=== PATIENT | female | born 1940 | race Caucasian/White ===

== ENCOUNTER 2017-03-11 14:02 | Inpatient (IN) | payer MEDICARE, BC ==
--- NOTE | 2017-03-11 15:10 | RAD ---
Indication: Chest pain. 2 views of the chest including dual energy PA views demonstrate no mediastinal shift. Heart is of normal size and configuration. Lung galindo demonstrate no pleural fluid, pneumonia or pneumothorax. IMPRESSION: No active cardiopulmonary disease is noted.
[2017-03-11 15:49] LABS: Hematocrit 41 % (35-47); Hemoglobin 13.2 g/dl (12.0-16.0); Mean Corpuscular HGB Conc 32 g/dl (31-36); Mean Corpuscular Hemoglobin 27 pg (27-31); Mean Corpuscular Volume 86 fL (80-97); Mean Platelet Volume 10 um3 (7.4-10.4); Red Cell Distribution Width 14 % (10.5-15); White Blood Count 16.6 10^3/ul (3.5-10.8)
[2017-03-11 16:05] LABS: Albumin 3.7 g/dL (3.2-5.2); BUN/Creatinine Ratio 22.6 (8-20); Calcium 9.4 mg/dL (8.6-10.3); EGFR African American 84.3 (>60); EGFR Non-African American 65.6 (>60); Globulin 3.2 g/dL (2-4); Potassium 4.1 mmol/L (3.5-5.0); Total Bilirubin 0.4 mg/dL (0.2-1.0); Total Protein 6.9 g/dL (6.4-8.9)
[2017-03-11] MEDS ORDERED: Nitroglycerin TAB 0.4 MG* 0.4 MG TAB SL ONE (16:38)
[2017-03-11] MEDS ORDERED: Dextrose 50% Syringe 50 ML* 25 GM/50 ML SYRINGE IV PUSH PRN (18:23)
--- NOTE | 2017-03-11 18:50 | ED ---
Lokesh Hargrove Adam, scribed for Odin Oliveira MD on 03/11/17 at 1631 . HPI Chest Pain - HPI Summary HPI Summary: Pt is a 77 year old female presenting with CP and palpitations. She describes the pain as a tightness that is 6/10 in severity. It set on yesterday and the pain has been constant since then. She woke up in the middle of the night with diaphoresis and found her blood sugar to be 62. She has DM and she had taken a typical dose of NovoLog at 23:00. She had eaten a normal dinner. The palpitations are described as rapid and irregular. She denies cough, lightheadedness/dizziness, N/V/D. She has 2 cardiac stents. She takes water pills. - History of Current Complaint Chief Complaint: EDChestWallPain Time Seen by Provider: 03/11/17 16:14 Pain Intensity: 5 - Allergy/Home Medications Allergies/Adverse Reactions: Allergies Allergy/AdvReac Type Severity Reaction Status Date / Time Barbiturates Allergy Hives Verified 08/05/15 10:32 Home Medications: Home Medications Cranberry (Vaccinium Macrocarp [Cranberry] 500 mg PO DAILY 03/11/17 [History Confirmed 03/11/17] Insulin Detemir [Levemir Flextouch] 110 unit SUBCUT QPM MDD 250 units 03/11/17 [ History Confirmed 03/11/17] Liraglutide (NF) [Victoza (NF)] 0.6 mg SUBCUT DAILY 03/11/17 [History Confirmed 03/11/17] PMH/Surg Hx/FS Hx/Imm Hx Endocrine/Hematology History: Reports: Hx Anticoagulant Therapy - PLAVIX, 81MG ASA, Hx Diabetes - IDDM, Hx Thyroid Disease Denies: Hx Anemia Cardiovascular History: Reports: Hx Coronary Artery Disease - STENT X2 2006,2012 , Hx Hypertension - WELL CONTROLLED Respiratory History: Denies: Hx Asthma GI History: Reports: Hx Gastroesophageal Reflux Disease - OCC Denies: Hx Jaundice History: Denies: Hx Renal Disease Musculoskeletal History: Reports: Hx Tendonitis - LEFT ACHILLES TENDONITIS R/T LEVAQUIN Sensory History: Reports: Hx Contacts or Glasses Denies: Hx Hearing Aid Opthamlomology History: Reports: Hx Contacts or Glasses Neurological History: Denies: Hx Seizures - Cancer History Cancer Type, Location and Year: Melamoma, Squamous cell carcinoma Hx Chemotherapy: No Hx Radiation Therapy: No - Surgical History Surgery Procedure, Year, and Place: BILAT HERNIA REPAIR 1994. MELANOMA EXC RIGHT ARM X3 S. R TOE SURGERY 2012. TONSILLECTOMY. RHINOPLASTY Hx Anesthesia Reactions: No Infectious Disease History: Reports: Hx Shingles Denies: Traveled Outside the [place] in Last 30 Days - Social History Alcohol Use: Rare Substance Use Type: Reports: None Smoking Status (MU): Never Smoked Tobacco Review of Systems Positive: Skin Diaphoresis. Negative: Fever, Chills Negative: Erythema Negative: Sore Throat Positive: Palpitations, Chest Pain Negative: Shortness Of Breath, Cough Negative: Abdominal Pain, Vomiting, Nausea Negative: dysuria, hematuria Negative: Myalgia, Edema Negative: Rash All Other Systems Reviewed And Are Negative: Yes Physical Exam - Summary Physical Exam Summary: Constitutional: Well-developed, Well-nourished, Alert. (-) Distressed Skin: Warm, Dry HENT: Normocephalic; Atraumatic Eyes: Conjunctiva normal Neck: Musculoskeletal ROM normal neck. (-) JVD, (-) Stridor, (-) Tracheal deviation Cardio: Rhythm regular, rate normal, Heart sounds normal; Intact distal pulses; The pedal pulses are 2+ and symmetric. Radial pulses are 2+ and symmetric. (-) Murmur Pulmonary/Chest wall: Effort normal. (-) Respiratory distress, (-) Wheezes, (-) Rales Abd: Soft, (-) Tenderness, (-) Distension, (-) Guarding, (-) Rebound Musculoskeletal: (-) Edema Lymph: (-) Cervical adenopathy Neuro: Alert, Oriented x3 Psych: Mood and affect Normal Triage Information Reviewed: Yes Vital Signs On Initial Exam: Initial Vitals Temp Pulse Resp BP Pulse Ox 97.8 F 100 20 199/74 97 03/11/17 14:02 03/11/17 14:02 03/11/17 14:02 03/11/17 14:02 03/11/17 14:02 Vital Signs Reviewed: Yes Diagnostics - Vital Signs Vital Signs Temp Pulse Resp BP Pulse Ox 03/11/17 15:28 98.7 F 85 16 159/55 97 03/11/17 15:02 97.1 F 82 17 132/57 97 03/11/17 14:02 97.8 F 100 20 199/74 97 - Laboratory Lab Results: Lab Results 03/11/17 03/11/17 03/11/17 Range/Units 15:45 15:45 15:45 WBC 16.6 H (3.5-10.8) 10^3/ul RBC 4.80 (4.0-5.4) 10^6/ul Hgb 13.2 (12.0-16.0) g/dl Hct 41 (35-47) % MCV 86 (80-97) fL MCH 27 (27-31) pg MCHC 32 (31-36) g/dl RDW 14 (10.5-15) % Plt Count 318 (150-450) 10^3/ul MPV 10 (7.4-10.4) um3 Neut % (Auto) 70.6 (38-83) % Lymph % (Auto) 20.1 L (25-47) % [place] % (Auto) 6.3 (1-9) % Eos % (Auto) 2.1 (0-6) % Baso % (Auto) 0.9 (0-2) % Absolute Neuts (auto) 11.7 H (1.5-7.7) 10^3/ul Absolute Lymphs (auto) 3.3 (1.0-4.8) 10^3/ul Absolute Monos (auto) 1.0 H (0-0.8) 10^3/ul Absolute Eos (auto) 0.4 (0-0.6) 10^3/ul Absolute Basos (auto) 0.1 (0-0.2) 10^3/ul Absolute Nucleated RBC 0.01 10^3/ul Nucleated RBC % 0.1 Sodium 138 (133-145) mmol/L Potassium 4.1 (3.5-5.0) mmol/L Chloride 102 (101-111) mmol/L Carbon Dioxide 27 (22-32) mmol/L Anion Gap 9 (2-11) mmol/L BUN 19 (6-24) mg/dL Creatinine 0.84 (0.51-0.95) mg/dL Est GFR ( Amer) 84.3 (>60) Est GFR (Non-Af Amer) 65.6 (>60) BUN/Creatinine Ratio 22.6 H (8-20) Glucose 237 H (70-100) mg/dL Lactic Acid 3.3 H* (0.5-2.0) mmol/L Calcium 9.4 (8.6-10.3) mg/dL Total Bilirubin 0.40 (0.2-1.0) mg/dL AST 20 (13-39) U/L ALT 25 (7-52) U/L Alkaline Phosphatase 93 (34-104) U/L Troponin I 0.00 (<0.04) ng/mL Total Protein 6.9 (6.4-8.9) g/dL Albumin 3.7 (3.2-5.2) g/dL Globulin 3.2 (2-4) g/dL Albumin/Globulin Ratio 1.2 (1-3) Result Diagrams: 03/11/17 15:45 03/11/17 15:45 Lab Statement: Any lab studies that have been ordered have been reviewed, and results considered in the medical decision making process. - Additional Comments Diagnostic Additional Comments: Troponin I - 0.00 Lactic Acid - 3.3 Chest Pain Course/Dx - Diagnoses Provider Diagnoses: Chest pain, unspecified Discharge - Discharge Plan Condition: Good Disposition: ADMITTED TO [facility] documentation as recorded by the Lokesh contreras Adam accurately reflects the service I personally performed and the decisions made by , Odin Oliveira MD.
[2017-03-11] MEDS ORDERED: NS 0.9% 1000 ML* 1,000 ML IV SCH (19:00)
[2017-03-11] MEDS ORDERED: Insulin GLARGINE(*) 1 UNITS UNIT SUBCUT ONE (21:00)
--- NOTE | 2017-03-11 21:40 | HP ---
HISTORY AND PHYSICAL: DATE OF ADMISSION: 03/11/17 AGE: 77. PRIMARY CARE PROVIDER: Dr. Darby. CRANBERRY BOG SUPERVISOR: Dr. Bermudez. ATTENDING PHYSICIAN: Dr. Mazin Piper *(dictated by Prema Arriaga NP). CHIEF COMPLAINT: Chest tightness. HISTORY OF PRESENT ILLNESS: Ms. Thomson is a 77-year-old female with past medical history significant for diabetes mellitus, hypertension, hyperlipidemia , coronary artery disease, status post stenting x2, hypothyroidism, obesity who presented to the emergency room today with complaints of chest tightness that started yesterday. The patient states that she awoke during the night yesterday with chest tightness that has been constant ever since. The patient also notes that last night she awoke with diaphoresis and checked her glucose and was 62. The patient also reports irregular heart rate with palpitations that has been intermittent for the last few weeks, most often at nighttime. She reports that the chest tightness and palpitations occur randomly and she has not found an association with activity or rest that causes it. She reports checking her glucose 3 times daily and reports that it is often high, low, or within normal limits. The patient also reports recently suffering from seasonal allergies with a sinus headache that is resolving. She denies nasal congestion, fever, chills, cough, nausea, vomiting, diarrhea, lightheadedness, dizziness, or urinary symptoms. The patient does report some mild shortness of breath that she attributes to her allergy symptoms. Due to concern for the patient's symptoms and previous cardiac history, the patient presented to the emergency room for further evaluation of her symptoms. While in the emergency room, the patient had an EKG showing a sinus rhythm with a rate of 85. This EKG is similar to previous EKGs from 01/05/12. The patient also had a chest x-ray showing no acute findings. She had labs that were significant for lactic acid of 3.33 and troponin of 0.00 x2 and a white blood cell count of 16.6. Due to the patient's presentation with chest tightness and her history, the Hospitalists were asked to evaluate the patient for admission. The patient was also given nitro during her time in the ER, which decreased her chest discomfort from a 6/10 to a 2/10. The patient then reports that the chest pain has now resolved. PAST MEDICAL HISTORY: 1. Diabetes mellitus, insulin dependent. 2. Hypertension. 3. Coronary artery disease. 4. GERD. 5. Melanoma of the left upper arm. 6. Squamous cell carcinoma of the right lower leg. 7. Hypothyroidism. 8. Hyperlipidemia. 9. Obesity. 10. Metabolic syndrome. 11. Shingles x2. PAST SURGICAL HISTORY: 1. Status post rhinoplasty. 2. Status post tonsillectomy. 3. ORIF of the right fifth metatarsal in 2012. 4. Status post bilateral cataract extractions. 5. Status post cardiac catheterization with cardiac stenting in 2006 and 2011. 6. Excision of squamous cell carcinoma of the right lower extremity. 7. Status post bilateral hernia repair in . 8. Status post excision of melanoma of the left upper extremity in the . HOME MEDICATIONS: Include: 1. NovoLog sliding scale subcutaneously daily with meals. 2. Cranberry 500 mg oral daily. 3. Clobetasol 0.05% apply topical twice daily to her perineal area. 4. Aspirin 81 mg daily at bedtime. 5. Vitamin B complex 1 tablet oral daily. 6. Levemir 100 units subcutaneous every morning. 7. Levemir 110 units subcutaneous every evening. 8. Plavix 75 mg oral daily. 9. Atorvastatin 80 mg oral every evening. 10. Glucophage 1000 mg oral twice daily. 11. Losartan 100 mg oral daily. 12. Levothyroxine 100 mcg oral daily. 13. Hydrochlorothiazide 12.5 mg oral daily. 14. Metoprolol 25 mg oral daily. 15. Victoza 0.6 mg subcutaneous daily. ALLERGIES: BARBITURATES and BYETTA. FAMILY HISTORY: The patient reports a maternal grandmother who had an NC in her 50s. The patient's mother, maternal grandmother, and maternal great grandmother, all had diabetes mellitus. The patient's paternal aunt had a history of breast cancer and passed from it. SOCIAL HISTORY: The patient denies tobacco or recreational drug use. She rarely drinks alcohol. 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 She is and lives with her , Shoaib Lyle, who will be her surrogate decision maker in the event that she is unable to make decision for herself. REVIEW OF SYSTEMS: I performed a 14-point review of systems. All the pertinent positives and negatives are mentioned in the history of present illness. The remaining review of systems are negative. PHYSICAL EXAMINATION GENERAL APPEARANCE: The patient is alert, pleasant, appears to be in no acute distress. VITAL SIGNS: Temperature 98.9, heart rate 88, respiratory rate 20, O2 sat 100% on room air, blood pressure 142/66. HEENT: Normocephalic, atraumatic. Pupils are equal and reactive to light. Extraocular movements are intact. NECK: Supple. RESPIRATORY: There is no accessory muscle use and the lungs are clear to auscultation bilaterally. CARDIOVASCULAR: Regular rate and rhythm. There are no murmurs, rubs, or gallops heard. ABDOMEN: Soft, nontender, nondistended. There are bowel sounds present x4. EXTREMITIES: There is no lower extremity edema. DP and PT pulses are 2+ and symmetric. MUSCULOSKELETAL: There is no clubbing or cyanosis noted. The patient exhibits good strength in all extremities. NEUROLOGICAL: The patient is alert and oriented x4. Cranial nerves are II through XII are grossly intact. PSYCHOLOGICAL: The patient is calm and cooperative. SKIN: There are no rashes or abnormalities seen. DIAGNOSTIC STUDIES/LABORATORY DATA: Sodium 138, potassium 4.1, chloride 102, CO2 27, BUN 19, creatinine 0.84, glucose 237. White blood cell count 16.6, hemoglobin 13.2, hematocrit 41, and platelet count 318. Lactic acid 3.3. Troponin 0.00 x2. EKG shows a sinus rhythm with a rate of 85. This EKG is similar to previous EKG from 01/05/12. Chest x-ray from today: Radiologist's impression: No active cardiopulmonary disease. IMPRESSION: Ms. Thomson is a 77-year-old female with past medical history significant for diabetes mellitus, hypertension, coronary artery disease, gastroesophageal reflux disease, hypothyroidism, hyperlipidemia, and obesity who presents to the emergency room with atypical chest pain. She will be admitted as an observation for chest pain, rule out acute coronary syndrome. ASSESSMENT: 1. Chest pain: The patient will be admitted to rule out acute coronary syndrome. She will be monitored on telemetry. We will trend her troponins. At this point, her troponins have been 0.00 x2. Her chest pain has resolved. The patient's CHLOE score is a 3. We will check fasting lipids in the morning. The patient's last TSH was 1.70 in January 2017. 2. Elevated lactic acid and leukocytosis: Unclear etiology at this time. The patient's chest x-ray shows no active cardiopulmonary disease. The patient denies urinary symptoms, but we will check a urinalysis. We will hold on starting antibiotics at this time. We will give the patient IV fluids overnight. 3. Diabetes mellitus: We will place the patient on lispro sliding scale. We will hold her metformin and Victoza. The patient will be placed on Lantus. We will do 90 units subcutaneous every morning and 100 units subcutaneous every evening as Lantus is slightly more potent than the Levemir that she uses at home. 4. Hypertension: The patient has been slightly hypertensive in the emergency room. We will monitor her blood pressures and keep her on her current home medications of metoprolol and losartan and she may need her antihypertensives further adjusted. Continue hydrochlorothiazide. 5. History of coronary artery disease: The patient will be continued on her metoprolol, Lipitor, Plavix, and aspirin. 6. Hypothyroidism: The patient's last TSH in January was 1.70. She will be continued on her home dose of levothyroxine of 100 mcg. 7. Fluids, electrolytes, and nutrition: The patient will be on a consistent carbohydrate diet. 8. Code status: Do not resuscitate. A MOLST has been completed and placed in the patient's chart. 9. DVT prophylaxis: The patient is at a high risk and will be placed on subcu heparin. 10. Disposition: Observation. TIME SPENT: The time spent for this admission was 60 minutes; 35 minutes were spent with the patient and discussing medications, past medical history , and the events leading up to her arrival today and performing her physical examination. The case has been reviewed with the attending, Dr. Piper, who agrees with the plan of care. Reviewed by VIANEY GONZALEZ 03/16/17 1802 CC: Dr. Yoav Darby* [id number]/[facility] #: [id number] [place]
[2017-03-11] MEDS: Clobetasol 0.05% OINT* 30 GM TUBE TOPICAL SCH (22:17)
[2017-03-11] MEDS: Insulin GLARGINE(*) 1 UNITS UNIT SUBCUT SCH (22:19)
[2017-03-11] MEDS: Aspirin EC Low Dose* 81 MG TAB.EC PO SCH (22:19)
[2017-03-11] MEDS: Heparin VIAL(*) 5000 UNITS/ML VIAL (FIVE THOUSAND) SUBCUT SCH (23:41)
[2017-03-11] MEDS: Atorvastatin* 80 MG TAB PO SCH (23:50)
[2017-03-11] MEDS: Losartan TAB* 25 MG PO SCH (23:51)
[2017-03-12 04:16] LABS: Urine Bacteria 1+ (Absent); Urine Bilirubin Negative (Negative); Urine Glucose Negative (Negative); Urine Nitrite Positive (Negative)
[2017-03-12] MEDS: Heparin VIAL(*) 5000 UNITS/ML VIAL (FIVE THOUSAND) SUBCUT SCH (06:13)
[2017-03-12] MEDS: Levothyroxine TAB* 100 MCG TAB PO SCH (06:14)
[2017-03-12 07:12] LABS: Hematocrit 39 % (35-47); Hemoglobin 12.3 g/dl (12.0-16.0); Mean Corpuscular HGB Conc 32 g/dl (31-36); Mean Corpuscular Hemoglobin 27 pg (27-31); Mean Corpuscular Volume 86 fL (80-97); Mean Platelet Volume 9 um3 (7.4-10.4); Red Cell Distribution Width 15 % (10.5-15); White Blood Count 12.7 10^3/ul (3.5-10.8)
[2017-03-12 07:31] LABS: HDL Cholesterol 31.7 mg/dL
[2017-03-12] MEDS: Insulin LISPRO* 1 UNITS UNIT SUBCUT SCH ×3 (08:35→17:06)
[2017-03-12] MEDS: Metoprolol Succinate XL TAB* 25 MG PO SCH (08:35)
[2017-03-12] MEDS: Clopidogrel TAB* 75 MG PO SCH (08:35)
[2017-03-12] MEDS: Hydrochlorothiazide TAB* 25 MG PO SCH (08:35)
[2017-03-12] MEDS: Insulin GLARGINE(*) 1 UNITS UNIT SUBCUT SCH ×2 (08:36→21:25)
[2017-03-12] MEDS: Clobetasol 0.05% OINT* 30 GM TUBE TOPICAL SCH ×2 (08:41→21:25)
--- NOTE | 2017-03-12 10:02 | PN ---
Subjective - Subjective Reason for Note: Progress Note History: Mali Thomson has had rapid heartbeats that are self limiting for several weeks. Yesterday she had 8 hours of chest tightness associated with sensation of irregular heartbeat. She did not have any sweating, nausea, vomiting, light headedness, shortness of breath. She denies any symptoms of intercurrent illness recently - cough, cold, fevers, UTI, gastroenteritis. Otherwise, there has been no change in her chronic medical conditions. She has been swimming and has felt well. Active Problems: Active Problems Paroxysmal atrial fibrillation with rapid ventricular response (Acute) I48.0 Urinary tract infection (Acute 02/27/15) Coronary artery disease (Chronic) I25.10 DM (diabetes mellitus), type 2, uncontrolled w/neurologic complication (Chronic ) E11.49, E11.65 Essential (primary) hypertension (Chronic) I10 Hypercholesteremia (Chronic) E78.0 Obesity, Class II, BMI 35.0-39.9, with comorbidity (see actual BMI) (Chronic) E66.01 Peripheral neuropathy (Chronic) G62.9 Primary hypothyroidism (Chronic) E03.9 Current Medications: Current Medications Aspirin (Aspirin Ec Low Dose*) 81 mg PO BEDTIME [facility] Last Admin: 03/11/17 22:19 Dose: 81 mg Atorvastatin Calcium (Lipitor*) 80 mg PO BEDTIME [facility] Last Admin: 03/11/17 23:50 Dose: 80 mg Clobetasol Propionate (Clobetasol 0.05% Oint*) 1 applic TOPICAL BID [facility] Last Admin: 03/12/17 08:41 Dose: 1 applic Clopidogrel Bisulfate (Plavix Tab*) 75 mg PO DAILY [facility] Last Admin: 03/12/17 08:35 Dose: 75 mg Dextrose (D50w Syringe 50 Ml*) 12.5 gm IV PUSH .FOR FS < 60 - SS PRN PRN Reason: FS < 60 Heparin Sodium (Porcine) (Heparin Vial(*)) 5,000 units SUBCUT Q8HR [facility] Last Admin: 03/12/17 06:13 Dose: 5,000 units Hydrochlorothiazide (Hydrodiuril Tab*) 12.5 mg PO DAILY [facility] Last Admin: 03/12/17 08:35 Dose: 12.5 mg Sodium Chloride (Ns 0.9% 1000 Ml*) 1,000 mls @ 100 mls/hr IV PER RATE [facility] Last Admin: 03/11/17 22:33 Dose: 100 mls/hr Insulin Glargine (Lantus(*)) 90 units SUBCUT QAM [facility] Last Admin: 03/12/17 08:36 Dose: 90 unit Insulin Glargine (Lantus(*)) 100 units SUBCUT BEDTIME [facility] Last Admin: 03/11/17 22:19 Dose: 100 units Insulin Human Lispro (Humalog*) 0 - 15 units SUBCUT AC [facility] PRN Reason: Protocol Last Admin: 03/12/17 08:35 Dose: 3 units Levothyroxine Sodium (Synthroid Tab*) 100 mcg PO 0600 [facility] Last Admin: 03/12/17 06:14 Dose: 100 mcg Losartan Potassium (Cozaar Tab*) 100 mg PO BEDTIME [facility] Last Admin: 03/11/17 23:51 Dose: 100 mg Metoprolol Succinate (Toprol Xl Tab*) 25 mg PO DAILY [facility] Last Admin: 03/12/17 08:35 Dose: 25 mg Home Medications: Home Medications Medication Instructions Recorded Confirmed Type Aspirin EC Low Dose* [Ecotrin EC 81 mg PO DAILY 02/27/15 03/11/17 History Low Dose 81 MG*] Atorvastatin* [Lipitor*] 80 mg PO QPM 02/27/15 03/11/17 History Clopidogrel TAB* [Plavix TAB*] 75 mg PO DAILY 02/27/15 03/11/17 History Hydrochlorothiazide TAB* 12.5 mg PO DAILY 02/27/15 03/11/17 History [Hydrodiuril TAB*] Insulin Aspart Protamine & Asp 0 - 50 inj SUBCUT TID MDD 50 units 02/27/1503/11 History [Novolog Mix 70/30 (70-30) 100 Unit/ml] Insulin Detemir [Levemir Flextouch] 100 unit SUBCUT QAM MDD 250 units 02/27/15 03/11/17 History Levothyroxine TAB* [Synthroid TAB*] 100 mcg PO 0800 02/27/15 03/11/17 History Losartan TAB* [Cozaar TAB*] 100 mg PO DAILY 02/27/15 03/11/17 History Metoprolol Succinate XL TAB* 25 mg PO DAILY 02/27/15 03/11/17 History [Toprol XL TAB*] Vitamin B Complex CAP* [B Complex 1 cap PO DAILY 02/27/15 03/11/17 History CAP*] metFORMIN* [Glucophage*] 1,000 mg PO 0800,1700 02/27/15 03/11/17 History Clobetasol 0.05% OINT* 1 applic TOPICAL BID 07/29/15 03/11/17 History Cranberry (Vaccinium Macrocarp 500 mg PO DAILY 03/11/17 03/11/17 History [Cranberry] Insulin Detemir [Levemir Flextouch] 110 unit SUBCUT QPM MDD 250 units 03/11/17 03/11/17 History Liraglutide (NF) [Victoza (NF)] 0.6 mg SUBCUT DAILY 03/11/17 03/11/17 History Allergies: Allergies Allergy/AdvReac Type Severity Reaction Status Date / Time Barbiturates Allergy Hives Verified 08/05/15 10:32 Exenatide [From Byetta] Allergy Unknown Verified 03/11/17 19:03 Reaction Details Phenol [From Byetta] Allergy Unknown Verified 03/11/17 19:03 Reaction Details Objective - Vital Signs Vital Signs: Vital Signs 03/11/17 03/11/17 03/11/17 18:00 18:30 19:00 Temperature 97.4 F Pulse Rate 84 80 82 Respiratory 16 16 22 Rate Blood Pressure 168/74 154/59 (mmHg) O2 Sat by Pulse 94 94 92 Oximetry 03/11/17 03/11/17 03/12/17 20:00 23:56 03:40 Temperature 97.5 F 97.8 F Pulse Rate 80 76 Respiratory 18 16 20 Rate Blood Pressure 139/75 133/62 (mmHg) O2 Sat by Pulse 95 92 Oximetry 03/12/17 07:33 Temperature Pulse Rate Respiratory 18 Rate Blood Pressure (mmHg) O2 Sat by Pulse Oximetry - Intake and Output Intake and Output: Intake & Output 03/09/17 03/10/17 03/11/17 03/12/17 11:59 11:59 11:59 11:59 Intake Total 200 Balance 200 Weight 270 lb 3.2 oz Intake: Oral 200 Other: Estimated Void Small # Bowel Movements 0 # Voids 2 ADLs: Meal Record Start: 03/11/17 18: 30 Freq: DAILY@0900,1400,1800 Status: Active Document 03/12/17 09:06 [id number] (Rec: 03/12/17 09:06 [id number]) Intake and Output Start: 03/11/17 18: 30 Freq: DAILY@0600,1400,2200 Status: Active Document 03/12/17 05:21 [id number] (Rec: 03/12/17 05:24 [id number]) - Physical Exam General Physical Exam Comment: Warm, well perfused and in no acute distress. General: No Cyanosis, No Anemia, No Jaundice, No Clubbing Eye Exam: right: EOMI Skin: Normal: Rash Lungs and Chest: Yes: Chest Expansion Full, Chest Expansion Symetrica, Percussion Note Resonant, Vessicular Breath Sounds. No: Crackles, Wheezes Heart Rate and Rhythm: Regular Additional Cardiovascular: Yes: Normal Heart Sounds. No: Heart Murmur, Carotid Bruits, Pedal Edema Abdominal Exam: Yes: Soft, Bowel Sounds Present. No: Distention, Abdominal Mass , Abdominal Tenderness - Extremities Cranial Nerves II-XII Intact: Yes Limbs: Normal Power, Normal Tone - Neuro Orientation: A/O x3 Speech: Normal Results - Results Lab Results: Laboratory Results - last 24 hr 03/11/17 03/11/17 03/12/17 20:27 20:27 01:00 WBC RBC Hgb Hct MCV MCH MCHC RDW Plt Count MPV Neut % (Auto) Lymph % (Auto) [place] % (Auto) Eos % (Auto) Baso % (Auto) Absolute Neuts (auto) Absolute Lymphs (auto) Absolute Monos (auto) Absolute Eos (auto) Absolute Basos (auto) Absolute Nucleated RBC Nucleated RBC % POC Glucose (mg/dL) Lactic Acid 2.5 H* Troponin I 0.00 Triglycerides Cholesterol LDL Cholesterol HDL Cholesterol Urine Color Yellow Urine Appearance Cloudy Urine pH 5.0 Ur Specific Clarence 1.020 Urine Protein Negative Urine Ketones Negative Urine Blood Negative Urine Nitrate Positive H Urine Bilirubin Negative Urine Urobilinogen Negative Ur Leukocyte Esterase Trace H Urine WBC (Auto) Trace(0-5/hpf) Urine RBC (Auto) 1+(3-5/hpf) H Urine Bacteria 1+ H Urine Glucose Negative 03/12/17 03/12/17 03/12/17 01:16 03:53 06:55 WBC 12.7 H RBC 4.50 Hgb 12.3 Hct 39 MCV 86 MCH 27 MCHC 32 RDW 15 Plt Count 269 MPV 9 Neut % (Auto) 65.6 Lymph % (Auto) 24.9 L [place] % (Auto) 5.5 Eos % (Auto) 3.1 Baso % (Auto) 0.9 Absolute Neuts (auto) 8.4 H Absolute Lymphs (auto) 3.2 Absolute Monos (auto) 0.7 Absolute Eos (auto) 0.4 Absolute Basos (auto) 0.1 Absolute Nucleated RBC 0 Nucleated RBC % 0 POC Glucose (mg/dL) 178 H 121 H Lactic Acid Troponin I Triglycerides Cholesterol LDL Cholesterol HDL Cholesterol Urine Color Urine Appearance Urine pH Ur Specific Clarence Urine Protein Urine Ketones Urine Blood Urine Nitrate Urine Bilirubin Urine Urobilinogen Ur Leukocyte Esterase Urine WBC (Auto) Urine RBC (Auto) Urine Bacteria Urine Glucose 03/12/17 03/12/17 06:55 07:21 WBC RBC Hgb Hct MCV MCH MCHC RDW Plt Count MPV Neut % (Auto) Lymph % (Auto) [place] % (Auto) Eos % (Auto) Baso % (Auto) Absolute Neuts (auto) Absolute Lymphs (auto) Absolute Monos (auto) Absolute Eos (auto) Absolute Basos (auto) Absolute Nucleated RBC Nucleated RBC % POC Glucose (mg/dL) 157 H Lactic Acid Troponin I Triglycerides 158 Cholesterol 146 LDL Cholesterol 83 HDL Cholesterol 31.7 Urine Color Urine Appearance Urine pH Ur Specific Clarence Urine Protein Urine Ketones Urine Blood Urine Nitrate Urine Bilirubin Urine Urobilinogen Ur Leukocyte Esterase Urine WBC (Auto) Urine RBC (Auto) Urine Bacteria Urine Glucose Radiology Results: Patient Name: MALI THOMSON Medical Record#: [id number] Ordering Physician: Rogerio Rose MD Acct.#: [id number] : 1940 Age: 77 Sex: F Location: EMERGENCY DEPARTMENT Exam Date: 03/11/17 1432 ADM Status: REG ER Order Information: CHEST PA & LAT 2 VWS Accession Number: [id number] CPT: 05613 Indication: Chest pain. 2 views of the chest including dual energy PA views demonstrate no mediastinal shift. Heart is of normal size and configuration. Lung galindo demonstrate no pleural fluid, pneumonia or pneumothorax. IMPRESSION: No active cardiopulmonary disease is noted. <Electronically signed by Nydia Rowe MD in OV> 03/11/171506 Dictated By: Nydia Rowe MD Dictated Date/Time: 03/11/17 1507 Transcribed Date/Time: 03/11/17 1504 Copy to: CC:Yoav Darby MD; [facility]; Rogerio Rose MD Imaging - [facility] Imaging - [facility] Imaging [facility] [address] [place] [id number] [address] [address] ph ([phone]) ph ([phone]) ph ([phone]) EKG Report: 12 lead EKG RAte 85 [place] 188 QTc 445 QRS axis -22 left axis deviation ? left anterior hemiblock. No ST-T changes Telemetry: Multiple episodes of atrial fibrillation - some with rapid ventricular response Assessment - Problem List Assessment: Patient Problems Paroxysmal atrial fibrillation with rapid ventricular response (Acute) Urinary tract infection (Acute 02/27/15) Coronary artery disease (Chronic) DM (diabetes mellitus), type 2, uncontrolled w/neurologic complication (Chronic) Essential (primary) hypertension (Chronic) Hypercholesteremia (Chronic) Obesity, Class II, BMI 35.0-39.9, with comorbidity (see actual BMI) (Chronic) Peripheral neuropathy (Chronic) Primary hypothyroidism (Chronic) Plan: Paroxysmal atrial fibrillation with rapid ventricular response (Acute) I think she had a prolonged episode of paroxysmal atrial fibrillation with a rapid ventricular response accounting for her lactic acid level. Her troponin I series is negative, making acute ischemia an unlikely cause. I will check her thyroid function. I have discussed her case with Dr. Bermudez - her primary warehouse production worker - fortuitously he is continuity writer this weekend and will consult. He agrees we should anticoagulate her. I discussed this with the patient and educated her about novel anticoagulants. She agrees to start xarelto. I explained to the patient the nature of paroxysmal atrial fibrillation and the various investigatory and therapeutic approaches. I included evaluation of ischemia given her previous history of CAD and multiple ris factors. I also discussed the use of antiarrhythmic agents - several of which require hospitalization for initiation. I discussed the eventual use of either rate control or radiofrequency ablation. Urinary tract infection (Acute 02/27/15) She has a positive urinalysis - she has no physical signs. I will add a CRP and await colony count/C and S prior to treatment. She is not septic and I think this is a coexisting problem - not the cause for her admission. Coronary artery disease (Chronic) per Dr. Bermudez DM (diabetes mellitus), type 2, uncontrolled w/neurologic complication (Chronic ) well controlled Essential (primary) hypertension (Chronic) well controlled Hypercholesteremia (Chronic) continue current Rx Obesity, Class II, BMI 35.0-39.9, with comorbidity (see actual BMI) (Chronic) secondary diagnosis Peripheral neuropathy (Chronic) secondary diagnosis Primary hypothyroidism (Chronic) I will check her TSH. I discussed the above with the patient and she agrees with the management plan.
[2017-03-12 11:30] LABS: TSH (Thyroid Stimulating Horm) 1.75 mcIU/mL (0.34-5.60)
[2017-03-12 11:35] LABS: Free T4 1.02 ng/dL (0.61-1.12)
[2017-03-12 11:39] LABS: Total T3 0.63 ng/mL (0.87-1.78)
[2017-03-12] MEDS: Rivaroxaban TAB(*) 20 MG TAB PO SCH (12:57)
[2017-03-12 13:28] LABS: C Reactive Protein 11.89 mg/L (< 5.00)
--- NOTE | 2017-03-12 16:56 | CONS ---
CC: Dr. Yoav Darby; Dr. Bermudez CARDIOLOGY CONSULTATION REPORT: DATE OF CONSULT: 03/12/17 HISTORY OF PRESENT ILLNESS: I was asked by Dr. Yoav Darby to see this 77-year- old female patient, who is known to me from before with extensive cardiac history and comorbidities, who presented to the hospital with palpitations, tachycardia, and apparently, she was found to have paroxysmal atrial fibrillation. She has some chest pressure with it. In the emergency room, she had sublingual nitroglycerin and that was relieved. She had no recurrent chest pain. She feels better since being in the hospital. Monitor showing periods of atrial fibrillation, paroxysmal. She gives no orthopnea, no PNDs, no dizziness, no syncope, no nausea, no vomiting, no hematochezia, no skin rash, no abdominal pain, no swelling of the lower extremities. She has been taking all her medications accordingly. She has significant comorbidities including diabetes mellitus, morbid obesity, hyperlipidemia. She does have known history of coronary artery disease with multiple cardiac catheterizations in the past, including last one in December 2011 with acute coronary syndrome, she had angioplasty, and stenting of the mid RCA and originally she had in 2006, stenting of the RCA. She also was found to have diffuse disease of the LAD for medical treatment. She does have history of systemic arterial hypertension, hypothyroidism, history of LVH, and history of UTI. She does have UTI at the present time acutely. She was ruled out for myocardial infarction by negative troponins. Her review of all other systems essentially is negative. PAST MEDICAL HISTORY: Her other medical history includes paroxysmal atrial fibrillation, urinary tract infection, coronary artery disease, diabetes mellitus, essential hypertension, hyperlipidemia, obesity, peripheral neuropathy , and primary hypothyroidism. PAST SURGICAL HISTORY: Cardiac catheterization in 2006 and 2011. MEDICATIONS: Include: 1. Aspirin 81 mg daily. 2. Lipitor 80 mg once daily. 3. Clopidogrel 75 mg daily. 4. Heparin was discontinued. 5. Hydrochlorothiazide, she is on 12.5 mg daily. 6. Insulin adjusted to her sugar. 7. Levothyroxine 100 mcg daily. 8. Losartan 100 mg daily. 9. Metoprolol 25 mg daily. ALLERGIES: She is allergic to BARBITURATES, LEVAQUIN, and BYETTA. FAMILY HISTORY: No family history of premature coronary artery disease. SOCIAL HISTORY: She gives no history of smoking. No significant drinking. No history of illicit drug abuse. She lives with her . PHYSICAL EXAM: She is awake, alert, and oriented. She is not in acute distress. She is obese. Vitals: Blood pressure is 133/62; pulse 76, she is in sinus rhythm; she is afebrile; temperature 97.8; respiratory rate 20. Head and Neck Exam: Normocephalic, atraumatic head. Ear, nose, and throat essentially benign. Neck is supple. JVP is not elevated. No carotid bruits. No masses in the neck are appreciated. Chest: Clear to auscultation. No rales, no wheeze, no added sounds appreciated. Heart: Normal, regular, S1, S2. No added sounds, no gallops, no rubs. Abdomen: Benign, positive bowel sounds, obese. Extremities: No edema, no cyanosis, no clubbing. Skin exam is normal. Psych: Normal affect and mood. 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 DIAGNOSTIC STUDIES/LAB DATA: Her labs showed the following: White blood cells 12.7, it was 16.6; hemoglobin 12.3; hematocrit 39; platelets of 269. Her chemistry showed the following: Sodium 138, potassium 4.1, chloride 102, BUN 19 , creatinine 0.84, glucose 237. Lactic acid was initially 3.3, felt to be related to her atrial fibrillation. LFTs are normal. Troponin 0 x3. TSH 1.75 , total T3 was 0.63 which is low. Triglycerides 158, cholesterol 146, LDL 83, HDL 32. Her EKG showed her to be in normal sinus rhythm, heart rate 76 beats per minute , borderline low voltage, nonspecific T abnormality. Her chest x-ray was reported to have no active cardiopulmonary disease. IMPRESSION: The patient is a 77-year-old female patient with: 1. Presentation with paroxysmal atrial fibrillation. She is in sinus rhythm. 2. Known history of coronary artery disease with stents in the past to the right coronary artery, originally in 2006, then in 2011. 3. Morbid obesity. 4. Systemic arterial hypertension. 5. Urinary tract infection. 6. Diabetes mellitus, insulin dependent. 7. Hyperlipidemia. 8. Normal left ventricular systolic function by an echo done in 2013. 9. Status post angioplasty and stenting to the right coronary artery, last one was in 2011. 10. [id number] mitral insufficiency. 11. Trace tricuspid insufficiency. PLAN: The patient is currently on telemetry. She is in sinus rhythm. Monitors reviewed, showed she goes into paroxysmal atrial fibrillation briefly. She is chest pain free. I reviewed this patient via phone with Dr. Yoav Darby today. I agree with initiating anticoagulation by the CHADS-VASc scoring system. She is high risk based on her age, female sex, diabetes mellitus, vascular disease, systemic arterial hypertension. Dr. Yoav Darby already initiated Xarelto. Regarding evaluation and risk stratification, I think a nuclear Myoview stress test is appropriate. Last time, she had the catheterization was in 2011. It has been 5 years. Definitely, she has no acute ischemic events; hopefully, that is the case based on her troponin 0 in the setting of rapid atrial fibrillation. She is to avoid significant amount of alcohol. She is to avoid caffeinated drinks. She is to avoid stimulants. She is to have low-salt, low-fat diet. She is to have physical activity as tolerated. Regarding antiarrhythmic medications, that is a consideration, I will await for the next 24 to 48 hours to see her response. If she keeps going into paroxysmal atrial fibrillation symptomatic, consideration might be given to Multaq or sotalol or Tikosyn to be initiated in the hospital, especially the Tikosyn and sotalol. I explained this at length to the patient and her , who was available at bedside. I answered all of their concerns and questions up to their satisfaction. TIME SPENT: More than half of at least 60 to 65 plus minutes was in education and counseling mode, [id number] answering all their concerns and questions up to their satisfaction. [id number]/[facility] #: [id number] [place]
[2017-03-12] MEDS: Aspirin EC Low Dose* 81 MG TAB.EC PO SCH (21:24)
[2017-03-12] MEDS: Atorvastatin* 80 MG TAB PO SCH (21:24)
[2017-03-12] MEDS: Losartan TAB* 25 MG PO SCH (21:26)
[2017-03-13] MEDS: Levothyroxine TAB* 100 MCG TAB PO SCH (05:38)
[2017-03-13 07:58] LABS: Hematocrit 40 % (35-47); Hemoglobin 12.9 g/dl (12.0-16.0); Mean Corpuscular HGB Conc 32 g/dl (31-36); Mean Corpuscular Hemoglobin 28 pg (27-31); Mean Corpuscular Volume 85 fL (80-97); Mean Platelet Volume 10 um3 (7.4-10.4); Red Blood Count 4.67 10^6/ul (4.0-5.4); Red Cell Distribution Width 15 % (10.5-15); White Blood Count 13.2 10^3/ul (3.5-10.8)
[2017-03-13 08:12] LABS: BUN/Creatinine Ratio 22.1 (8-20); Calcium 9.3 mg/dL (8.6-10.3); EGFR African American 107.6 (>60); EGFR Non-African American 83.7 (>60); Potassium 3.8 mmol/L (3.5-5.0)
[2017-03-13] MEDS: Insulin GLARGINE(*) 1 UNITS UNIT SUBCUT SCH ×2 (08:56→21:23)
[2017-03-13] MEDS: Hydrochlorothiazide TAB* 25 MG PO SCH (08:57)
[2017-03-13] MEDS: Rivaroxaban TAB(*) 20 MG TAB PO SCH (08:57)
[2017-03-13] MEDS: Insulin LISPRO* 1 UNITS UNIT SUBCUT SCH ×3 (08:57→17:06)
[2017-03-13] MEDS: Clobetasol 0.05% OINT* 30 GM TUBE TOPICAL SCH ×2 (08:58→22:46)
[2017-03-13] MEDS: Clopidogrel TAB* 75 MG PO SCH (08:58)
[2017-03-13] MEDS: Metoprolol Succinate XL TAB* 25 MG PO SCH (08:58)
--- NOTE | 2017-03-13 12:41 | PN ---
Subjective - Subjective Reason for Note: Progress Note History: She started xarelto yesterday and has had some blood in her stool and minor epistaxis. She takes both clopidogrel and aspirin. She was fine overnight and after walking around the [place] this morning she developed slight chest tightness, and this was not associated with palpitations. She has no nausea, sweating, light-headedness. Her FS is high and her appetite+++ since stopping the liraglutide (victoza). Active Problems: Active Problems Anticoagulation adequate with anticoagulant therapy (Acute) Z79.01 Paroxysmal atrial fibrillation with rapid ventricular response (Acute) I48.0 Urinary tract infection (Acute 02/27/15) Coronary artery disease (Chronic) I25.10 DM (diabetes mellitus), type 2, uncontrolled w/neurologic complication (Chronic ) E11.49, E11.65 Essential (primary) hypertension (Chronic) I10 Hypercholesteremia (Chronic) E78.0 Obesity, Class II, BMI 35.0-39.9, with comorbidity (see actual BMI) (Chronic) E66.01 Peripheral neuropathy (Chronic) G62.9 Primary hypothyroidism (Chronic) E03.9 Current Medications: Current Medications Aspirin (Aspirin Ec Low Dose*) 81 mg PO BEDTIME [facility] Last Admin: 03/12/17 21:24 Dose: 81 mg Atorvastatin Calcium (Lipitor*) 80 mg PO BEDTIME [facility] Last Admin: 03/12/17 21:24 Dose: 80 mg Clobetasol Propionate (Clobetasol 0.05% Oint*) 1 applic TOPICAL BID [facility] Last Admin: 03/13/17 08:58 Dose: 1 applic Clopidogrel Bisulfate (Plavix Tab*) 75 mg PO DAILY [facility] Last Admin: 03/13/17 08:58 Dose: 75 mg Dextrose (D50w Syringe 50 Ml*) 12.5 gm IV PUSH .FOR FS < 60 - SS PRN PRN Reason: FS < 60 Hydrochlorothiazide (Hydrodiuril Tab*) 12.5 mg PO DAILY [facility] Last Admin: 03/13/17 08:57 Dose: 12.5 mg Insulin Glargine (Lantus(*)) 90 units SUBCUT QAM [facility] Last Admin: 03/13/17 08:56 Dose: 90 unit Insulin Glargine (Lantus(*)) 100 units SUBCUT BEDTIME [facility] Last Admin: 03/12/17 21:25 Dose: 100 units Insulin Human Lispro (Humalog*) 0 - 15 units SUBCUT AC [facility] PRN Reason: Protocol Last Admin: 03/13/17 12:14 Dose: 6 units Levothyroxine Sodium (Synthroid Tab*) 100 mcg PO 0600 [facility] Last Admin: 03/13/17 05:38 Dose: 100 mcg Liraglutide (Victoza (Nf)) 0.6 mg SUBCUT DAILY [facility] Losartan Potassium (Cozaar Tab*) 100 mg PO BEDTIME [facility] Last Admin: 03/12/17 21:26 Dose: 100 mg Metoprolol Succinate (Toprol Xl Tab*) 25 mg PO DAILY [facility] Last Admin: 03/13/17 08:58 Dose: 25 mg Rivaroxaban (Xarelto (*)) 20 mg PO DAILY [facility] Last Admin: 03/13/17 08:57 Dose: 20 mg Home Medications: Home Medications Medication Instructions Recorded Confirmed Type Aspirin EC Low Dose* [Ecotrin EC 81 mg PO DAILY 02/27/15 03/11/17 History Low Dose 81 MG*] Atorvastatin* [Lipitor*] 80 mg PO QPM 02/27/15 03/11/17 History Clopidogrel TAB* [Plavix TAB*] 75 mg PO DAILY 02/27/15 03/11/17 History Hydrochlorothiazide TAB* 12.5 mg PO DAILY 02/27/15 03/11/17 History [Hydrodiuril TAB*] Insulin Aspart Protamine & Asp 0 - 50 inj SUBCUT TID MDD 50 units 02/27/1503/11 History [Novolog Mix 70/30 (70-30) 100 Unit/ml] Insulin Detemir [Levemir Flextouch] 100 unit SUBCUT QAM MDD 250 units 02/27/15 03/11/17 History Levothyroxine TAB* [Synthroid TAB*] 100 mcg PO 0800 02/27/15 03/11/17 History Losartan TAB* [Cozaar TAB*] 100 mg PO DAILY 02/27/15 03/11/17 History Metoprolol Succinate XL TAB* 25 mg PO DAILY 02/27/15 03/11/17 History [Toprol XL TAB*] Vitamin B Complex CAP* [B Complex 1 cap PO DAILY 02/27/15 03/11/17 History CAP*] metFORMIN* [Glucophage*] 1,000 mg PO 0800,1700 04/16/15 04/28/17 History Clobetasol 0.05% OINT* 1 applic TOPICAL BID 07/29/15 03/11/17 History Cranberry (Vaccinium Macrocarp 500 mg PO DAILY 03/11/17 03/11/17 History [Cranberry] Insulin Detemir [Levemir Flextouch] 110 unit SUBCUT QPM MDD 250 units 03/11/17 03/11/17 History Liraglutide (NF) [Victoza (NF)] 0.6 mg SUBCUT DAILY 03/11/17 03/11/17 History Allergies: Allergies Allergy/AdvReac Type Severity Reaction Status Date / Time Barbiturates Allergy Hives Verified 08/05/15 10:32 Exenatide [From Byetta] Allergy Unknown Verified 03/11/17 19:03 Reaction Details Phenol [From Byetta] Allergy Unknown Verified 03/11/17 19:03 Reaction Details Objective - Vital Signs Vital Signs: Vital Signs 03/12/17 03/12/17 03/12/17 15:29 19:56 20:59 Temperature 98.0 F 98.2 F 98.2 F Pulse Rate 77 77 77 Respiratory 16 20 20 Rate Blood Pressure 127/47 127/61 127/61 (mmHg) O2 Sat by Pulse 93 93 93 Oximetry 03/13/17 03/13/17 03/13/17 00:37 04:21 07:33 Temperature 97.9 F 97.6 F Pulse Rate 77 73 Respiratory 16 16 16 Rate Blood Pressure 149/51 139/55 (mmHg) O2 Sat by Pulse 96 98 Oximetry 03/13/17 03/13/17 08:16 11:34 Temperature 97.4 F 97.5 F Pulse Rate 71 79 Respiratory 16 16 Rate Blood Pressure 130/63 132/66 (mmHg) O2 Sat by Pulse 96 98 Oximetry - Intake and Output Intake and Output: Intake & Output 03/11/17 03/12/17 03/13/17 03/14/17 11:59 11:59 11:59 11:59 Intake Total 200 1630 Balance 200 1630 Weight 270 lb 3.2 oz Intake: IVPB 650 NS (0.9%) 650 Oral 200 980 Other: Estimated Void Small Medium # Bowel Movements 0 0 # Voids 2 1 ADLs: Meal Record Start: 03/11/17 18: 30 Freq: DAILY@0900,1400,1800 Status: Active Document 03/12/17 09:06 [id number] (Rec: 03/12/17 09:06 [id number] [id number]) Document 03/12/17 18:00 [id number] (Rec: 03/12/17 21:56 [id number]) Document 03/13/17 09:00 [id number] (Rec: 03/13/17 10:25 [id number] TELE-C11) Intake and Output Start: 03/11/17 18: 30 Freq: DAILY@0600,1400,2200 Status: Active Document 03/12/17 05:21 [id number] (Rec: 03/12/17 05:24 [id number] TELE-C33) Document 03/12/17 13:19 [id number] (Rec: 03/12/17 13:20 [id number] TELE-C01) Document 03/12/17 22:00 [id number] (Rec: 03/12/17 23:00 [id number] TELE-C34) Document 03/13/17 06:00 [id number] (Rec: 03/13/17 07:17 [id number] [id number]) - Physical Exam General: No Cyanosis, No Anemia, No Jaundice, No Clubbing Lungs and Chest: Yes: Chest Expansion Full, Chest Expansion Symetrica, Percussion Note Resonant, Vessicular Breath Sounds. No: Crackles, Wheezes Heart Rate and Rhythm: Regular Additional Cardiovascular: Yes: Normal Heart Sounds. No: Heart Murmur, Pedal Edema Abdominal Exam: Yes: Soft. No: Distention, Abdominal Tenderness Results - Results Lab Results: Laboratory Results - last 24 hr 03/12/17 03/12/17 03/12/17 06:53 12:29 16:44 WBC RBC Hgb Hct MCV MCH MCHC RDW Plt Count MPV Neut % (Auto) Lymph % (Auto) [place] % (Auto) Eos % (Auto) Baso % (Auto) Absolute Neuts (auto) Absolute Lymphs (auto) Absolute Monos (auto) Absolute Eos (auto) Absolute Basos (auto) Absolute Nucleated RBC Nucleated RBC % Sodium Potassium Chloride Carbon Dioxide Anion Gap BUN Creatinine Est GFR ( Amer) Est GFR (Non-Af Amer) BUN/Creatinine Ratio Glucose POC Glucose (mg/dL) 153 H 171 H Calcium C-Reactive Protein 11.89 H 03/12/17 03/13/17 03/13/17 20:53 07:29 07:29 WBC 13.2 H RBC 4.67 Hgb 12.9 Hct 40 MCV 85 MCH 28 MCHC 32 RDW 15 Plt Count 268 MPV 10 Neut % (Auto) 70.7 Lymph % (Auto) 18.1 L [place] % (Auto) 7.0 Eos % (Auto) 3.3 Baso % (Auto) 0.9 Absolute Neuts (auto) 9.3 H Absolute Lymphs (auto) 2.4 Absolute Monos (auto) 0.9 H Absolute Eos (auto) 0.4 Absolute Basos (auto) 0.1 Absolute Nucleated RBC 0 Nucleated RBC % 0 Sodium 141 Potassium 3.8 Chloride 102 Carbon Dioxide 31 Anion Gap 8 BUN 15 Creatinine 0.68 Est GFR ( Amer) 107.6 Est GFR (Non-Af Amer) 83.7 BUN/Creatinine Ratio 22.1 H Glucose 134 H POC Glucose (mg/dL) 185 H Calcium 9.3 C-Reactive Protein 03/13/17 03/13/17 07:29 12:00 WBC RBC Hgb Hct MCV MCH MCHC RDW Plt Count MPV Neut % (Auto) Lymph % (Auto) [place] % (Auto) Eos % (Auto) Baso % (Auto) Absolute Neuts (auto) Absolute Lymphs (auto) Absolute Monos (auto) Absolute Eos (auto) Absolute Basos (auto) Absolute Nucleated RBC Nucleated RBC % Sodium Potassium Chloride Carbon Dioxide Anion Gap BUN Creatinine Est GFR ( Amer) Est GFR (Non-Af Amer) BUN/Creatinine Ratio Glucose POC Glucose (mg/dL) 140 H 222 H Calcium C-Reactive Protein Assessment - Problem List Assessment: Patient Problems Anticoagulation adequate with anticoagulant therapy (Acute) Paroxysmal atrial fibrillation with rapid ventricular response (Acute) Urinary tract infection (Acute 02/27/15) Coronary artery disease (Chronic) DM (diabetes mellitus), type 2, uncontrolled w/neurologic complication (Chronic) Essential (primary) hypertension (Chronic) Hypercholesteremia (Chronic) Obesity, Class II, BMI 35.0-39.9, with comorbidity (see actual BMI) (Chronic) Peripheral neuropathy (Chronic) Primary hypothyroidism (Chronic) Plan: Paroxysmal atrial fibrillation with rapid ventricular response (Acute) She has had sinus rhythm since yesterday only. However, she developed some chest tightness this morning. I have spoken with Dr. Bermudez - he is planning a stress test tomorrow followed by a coronary angiogram/stenting should this be positive. If it is negative, he will treat the atrial fibrillation with multaq. Anticoagulation adequate with anticoagulant therapy (Acute) Dr. Bermudez will stop her clopidogrel if the cardiac stress test is negative. If it is positive , she likely will require ongoing treatment as she may have another stent placed Urinary tract infection (Acute 02/27/15) Gram negative. > 100,000 cfu. Previous UTIs - Klebsiella and E.coli - the colonies look mucoid that is suggestive of E.coli. Previous E.coli R to bactrim. Rx amoxycillin 875 mg po bid. Coronary artery disease (Chronic) see above DM (diabetes mellitus), type 2, uncontrolled w/neurologic complication (Chronic ) She has developed hyperglycemia - I will restart her on her home supply of liraglutide daily. Essential (primary) hypertension (Chronic) well controlled Hypercholesteremia (Chronic) continue current Rx Obesity, Class II, BMI 35.0-39.9, with comorbidity (see actual BMI) (Chronic) Peripheral neuropathy (Chronic) secondary diagnosis Primary hypothyroidism (Chronic) TFTs on target - not cause of her atrial fibrillation. I spoke to both the patient and her . She agrees with management.
[2017-03-13] MEDS: Lactobacillus Acidophilu (GG)* 1 CAP CAP PO SCH (21:17)
[2017-03-13] MEDS: Losartan TAB* 25 MG PO SCH (21:18)
[2017-03-13] MEDS: Amoxicillin/Clavulanate TAB* 875 MG PO SCH (21:18)
[2017-03-13] MEDS: Atorvastatin* 80 MG TAB PO SCH (21:19)
[2017-03-13] MEDS: Aspirin EC Low Dose* 81 MG TAB.EC PO SCH (21:19)
[2017-03-14 06:09] LABS: Hematocrit 39 % (35-47); Hemoglobin 12.7 g/dl (12.0-16.0); Mean Corpuscular HGB Conc 32 g/dl (31-36); Mean Corpuscular Hemoglobin 27 pg (27-31); Mean Corpuscular Volume 85 fL (80-97); Mean Platelet Volume 10 um3 (7.4-10.4); Red Blood Count 4.62 10^6/ul (4.0-5.4); Red Cell Distribution Width 15 % (10.5-15)
[2017-03-14 07:14] LABS: BUN/Creatinine Ratio 20.5 (8-20); C Reactive Protein 11.88 mg/L (< 5.00); Calcium 9.3 mg/dL (8.6-10.3); EGFR African American 91.9 (>60); EGFR Non-African American 71.4 (>60); Potassium 3.8 mmol/L (3.5-5.0)
--- NOTE | 2017-03-14 07:33 | PN ---
Subjective - Subjective Reason for Note: Progress Note History: She was symptomatic with a glucose measurement of 77 mg/dl and had to take some juice. Otherwise, she has been symptom free. She has had no further episodes of atrial fibrillation on telemetry. There has been no chest pain, dyspnea, palpitations. Her slight chest tightness yesterday resolved spontaneously. She continues to have no symptoms of her UTI - no dysuria, hematuria. She is tolerating the augmentin., Active Problems: Active Problems Anticoagulation adequate with anticoagulant therapy (Acute) Z79.01 Paroxysmal atrial fibrillation with rapid ventricular response (Acute) I48.0 Urinary tract infection (Acute 02/27/15) Coronary artery disease (Chronic) I25.10 DM (diabetes mellitus), type 2, uncontrolled w/neurologic complication (Chronic ) E11.49, E11.65 Essential (primary) hypertension (Chronic) I10 Hypercholesteremia (Chronic) E78.0 Obesity, Class II, BMI 35.0-39.9, with comorbidity (see actual BMI) (Chronic) E66.01 Peripheral neuropathy (Chronic) G62.9 Primary hypothyroidism (Chronic) E03.9 Current Medications: Current Medications Amoxicillin/Clavulanate Potassium (Augmentin Tab*) 875 mg PO BID [facility] Last Admin: 03/13/17 21:18 Dose: 875 mg Aspirin (Aspirin Ec Low Dose*) 81 mg PO BEDTIME [facility] Last Admin: 03/13/17 21:19 Dose: 81 mg Atorvastatin Calcium (Lipitor*) 80 mg PO BEDTIME [facility] Last Admin: 03/13/17 21:19 Dose: 80 mg Clobetasol Propionate (Clobetasol 0.05% Oint*) 1 applic TOPICAL BID [facility] Last Admin: 03/13/17 22:46 Dose: 1 applic Clopidogrel Bisulfate (Plavix Tab*) 75 mg PO DAILY [facility] Last Admin: 03/13/17 08:58 Dose: 75 mg Dextrose (D50w Syringe 50 Ml*) 12.5 gm IV PUSH .FOR FS < 60 - SS PRN PRN Reason: FS < 60 Hydrochlorothiazide (Hydrodiuril Tab*) 12.5 mg PO DAILY [facility] Last Admin: 03/13/17 08:57 Dose: 12.5 mg Insulin Glargine (Lantus(*)) 90 units SUBCUT QAM [facility] Last Admin: 03/13/17 08:56 Dose: 90 unit Insulin Glargine (Lantus(*)) 100 units SUBCUT BEDTIME [facility] Last Admin: 03/13/17 21:23 Dose: 100 units Insulin Human Lispro (Humalog*) 0 - 15 units SUBCUT AC [facility] PRN Reason: Protocol Last Admin: 03/13/17 17:06 Dose: 3 units Lactobacillus Rhamnosus (Culturelle*) 1 cap PO BID [facility] Last Admin: 03/13/17 21:17 Dose: 1 cap Levothyroxine Sodium (Synthroid Tab*) 100 mcg PO 0600 [facility] Last Admin: 03/13/17 05:38 Dose: 100 mcg Liraglutide (Victoza (Nf)) 0.6 mg SUBCUT DAILY [facility] Losartan Potassium (Cozaar Tab*) 100 mg PO BEDTIME [facility] Last Admin: 03/13/17 21:18 Dose: 100 mg Metoprolol Succinate (Toprol Xl Tab*) 25 mg PO DAILY [facility] Last Admin: 03/13/17 08:58 Dose: 25 mg Rivaroxaban (Xarelto (*)) 20 mg PO DAILY [facility] Last Admin: 03/13/17 08:57 Dose: 20 mg Home Medications: Home Medications Medication Instructions Recorded Confirmed Type Aspirin EC Low Dose* [Ecotrin EC 81 mg PO DAILY 02/27/15 03/11/17 History Low Dose 81 MG*] Atorvastatin* [Lipitor*] 80 mg PO QPM 02/27/15 03/11/17 History Clopidogrel TAB* [Plavix TAB*] 75 mg PO DAILY 02/27/15 03/11/17 History Hydrochlorothiazide TAB* 12.5 mg PO DAILY 02/27/15 03/11/17 History [Hydrodiuril TAB*] Insulin Aspart Protamine & Asp 0 - 50 inj SUBCUT TID MDD 50 units 02/27/1503/11 History [Novolog Mix 70/30 (70-30) 100 Unit/ml] Insulin Detemir [Levemir Flextouch] 100 unit SUBCUT QAM MDD 250 units 02/27/15 03/11/17 History Levothyroxine TAB* [Synthroid TAB*] 100 mcg PO 0800 02/27/15 03/11/17 History Losartan TAB* [Cozaar TAB*] 100 mg PO DAILY 02/27/15 03/11/17 History Metoprolol Succinate XL TAB* 25 mg PO DAILY 02/27/15 03/11/17 History [Toprol XL TAB*] Vitamin B Complex CAP* [B Complex 1 cap PO DAILY 02/27/15 03/11/17 History CAP*] metFORMIN* [Glucophage*] 1,000 mg PO 0800,1700 02/27/15 03/11/17 History Clobetasol 0.05% OINT* 1 applic TOPICAL BID 07/29/15 03/11/17 History Cranberry (Vaccinium Macrocarp 500 mg PO DAILY 03/11/17 03/11/17 History [Cranberry] Insulin Detemir [Levemir Flextouch] 110 unit SUBCUT QPM MDD 250 units 03/11/17 03/11/17 History Liraglutide (NF) [Victoza (NF)] 0.6 mg SUBCUT DAILY 03/11/17 03/11/17 History Allergies: Allergies Allergy/AdvReac Type Severity Reaction Status Date / Time Barbiturates Allergy Hives Verified 08/05/15 10:32 Exenatide [From Byetta] Allergy Unknown Verified 03/11/17 19:03 Reaction Details Phenol [From Byetta] Allergy Unknown Verified 03/11/17 19:03 Reaction Details Objective - Vital Signs Vital Signs: Vital Signs 03/13/17 03/13/17 03/13/17 07:33 08:16 11:34 Temperature 97.4 F 97.5 F Pulse Rate 71 79 Respiratory 16 16 16 Rate Blood Pressure 130/63 132/66 (mmHg) O2 Sat by Pulse 96 98 Oximetry 03/13/17 03/13/17 03/13/17 15:21 19:39 20:00 Temperature 97.5 F 98.3 F Pulse Rate 80 80 Respiratory 20 20 16 Rate Blood Pressure 126/47 140/64 (mmHg) O2 Sat by Pulse 97 97 Oximetry 03/14/17 03/14/17 00:27 04:35 Temperature 98.2 F 98.3 F Pulse Rate 82 80 Respiratory 16 16 Rate Blood Pressure 125/51 121/53 (mmHg) O2 Sat by Pulse 95 94 Oximetry - Intake and Output Intake and Output: Intake & Output 03/11/17 03/12/17 03/13/17 03/14/17 11:59 11:59 11:59 11:59 Intake Total 200 1630 350 Output Total 0 Balance 200 1630 350 Weight 270 lb 3.2 oz Intake: IVPB 650 NS (0.9%) 650 Oral 200 980 350 Output: Urine 0 Other: Estimated Void Small Medium Medium # Bowel Movements 0 0 0 # Voids 2 1 1 ADLs: Meal Record Start: 03/11/17 18: 30 Freq: DAILY@0900,1400,1800 Status: Active Document 03/12/17 09:06 [id number] (Rec: 03/12/17 09:06 [id number] TELE-C01) Document 03/12/17 18:00 [id number] (Rec: 03/12/17 21:56 [id number] [id number]) Document 03/13/17 09:00 [id number] (Rec: 03/13/17 10:25 [id number] TELE-C11) Document 03/13/17 14:00 [id number] (Rec: 03/13/17 14:45 [id number] TELE-C11) Document 03/13/17 18:00 [id number] (Rec: 03/13/17 22:57 [id number] TELE-C34) Intake and Output Start: 03/11/17 18: 30 Freq: DAILY@0600,1400,2200 Status: Active Document 03/12/17 05:21 [id number] (Rec: 03/12/17 05:24 [id number] TELE-C33) Document 03/12/17 13:19 [id number] (Rec: 03/12/17 13:20 [id number] TELE-C01) Document 03/12/17 22:00 [id number] (Rec: 03/12/17 23:00 [id number] TELE-C34) Document 03/13/17 06:00 [id number] (Rec: 03/13/17 07:17 [id number] TELE-C34) Document 03/13/17 14:00 [id number] (Rec: 03/13/17 14:45 [id number] TELE-C11) Document 03/13/17 22:00 [id number] (Rec: 03/13/17 22:58 [id number] TELE-C34) Document 03/14/17 06:00 [id number] (Rec: 03/14/17 06:58 [id number] TELE-C34) - Physical Exam General: No Cyanosis, No Anemia, No Jaundice, No Clubbing Lungs and Chest: Yes: Chest Expansion Full, Chest Expansion Symetrica, Percussion Note Resonant, Vessicular Breath Sounds. No: Crackles, Wheezes, Respiratory Distress, Use of Accessory Muscles Heart Rate and Rhythm: Regular JVP: Not Elevated Additional Cardiovascular: Yes: Normal Heart Sounds. No: Heart Murmur, Pedal Edema Abdominal Exam: Yes: Soft, Bowel Sounds Present. No: Distention, Abdominal Mass , Hepatomegaly, Abdominal Tenderness Results - Results Lab Results: Laboratory Results - last 24 hr 03/13/17 03/13/17 03/13/17 07:29 07:29 07:29 WBC 13.2 H RBC 4.67 Hgb 12.9 Hct 40 MCV 85 MCH 28 MCHC 32 RDW 15 Plt Count 268 MPV 10 Neut % (Auto) 70.7 Lymph % (Auto) 18.1 L [place] % (Auto) 7.0 Eos % (Auto) 3.3 Baso % (Auto) 0.9 Absolute Neuts (auto) 9.3 H Absolute Lymphs (auto) 2.4 Absolute Monos (auto) 0.9 H Absolute Eos (auto) 0.4 Absolute Basos (auto) 0.1 Absolute Nucleated RBC 0 Nucleated RBC % 0 Sodium 141 Potassium 3.8 Chloride 102 Carbon Dioxide 31 Anion Gap 8 BUN 15 Creatinine 0.68 Est GFR ( Amer) 107.6 Est GFR (Non-Af Amer) 83.7 BUN/Creatinine Ratio 22.1 H Glucose 134 H POC Glucose (mg/dL) 140 H Calcium 9.3 C-Reactive Protein 03/13/17 03/13/17 03/13/17 12:00 16:52 22:30 WBC RBC Hgb Hct MCV MCH MCHC RDW Plt Count MPV Neut % (Auto) Lymph % (Auto) [place] % (Auto) Eos % (Auto) Baso % (Auto) Absolute Neuts (auto) Absolute Lymphs (auto) Absolute Monos (auto) Absolute Eos (auto) Absolute Basos (auto) Absolute Nucleated RBC Nucleated RBC % Sodium Potassium Chloride Carbon Dioxide Anion Gap BUN Creatinine Est GFR ( Amer) Est GFR (Non-Af Amer) BUN/Creatinine Ratio Glucose POC Glucose (mg/dL) 222 H 174 H 189 H Calcium C-Reactive Protein 03/14/17 03/14/17 03/14/17 05:29 05:29 05:50 WBC 15.0 H RBC 4.62 Hgb 12.7 Hct 39 MCV 85 MCH 27 MCHC 32 RDW 15 Plt Count 282 MPV 10 Neut % (Auto) 73.2 Lymph % (Auto) 17.1 L [place] % (Auto) 6.5 Eos % (Auto) 2.8 Baso % (Auto) 0.4 Absolute Neuts (auto) 11.0 H Absolute Lymphs (auto) 2.6 Absolute Monos (auto) 1.0 H Absolute Eos (auto) 0.4 Absolute Basos (auto) 0.1 Absolute Nucleated RBC 0 Nucleated RBC % 0 Sodium 141 Potassium 3.8 Chloride 103 Carbon Dioxide 32 Anion Gap 6 BUN 16 Creatinine 0.78 Est GFR ( Amer) 91.9 Est GFR (Non-Af Amer) 71.4 BUN/Creatinine Ratio 20.5 H Glucose 66 L POC Glucose (mg/dL) 77 Calcium 9.3 C-Reactive Protein 11.88 H Assessment - Problem List Assessment: Patient Problems Anticoagulation adequate with anticoagulant therapy (Acute) Paroxysmal atrial fibrillation with rapid ventricular response (Acute) Urinary tract infection (Acute 02/27/15) Coronary artery disease (Chronic) DM (diabetes mellitus), type 2, uncontrolled w/neurologic complication (Chronic) Essential (primary) hypertension (Chronic) Hypercholesteremia (Chronic) Obesity, Class II, BMI 35.0-39.9, with comorbidity (see actual BMI) (Chronic) Peripheral neuropathy (Chronic) Primary hypothyroidism (Chronic) Plan: Paroxysmal atrial fibrillation with rapid ventricular response (Acute) She has had no further episodes of atrial fibrillation on telemetry. We will check a [place] chemical stress test today. If this is positive, she will have a cardiology consultation. If this is negative, I will discharge her home. Her event mgr will need to decide the following: * Continue or discontinue xarelto * Continue or discontinue clopidogrel * Start multaq Urinary tract infection (Acute 02/27/15) I have started her on augmentin based upon a previous urine C and S for E.coli. She has grown E. coli, but C and S are pending Coronary artery disease (Chronic) see above Anticoagulation adequate with anticoagulant therapy (Acute) No further evidence of bleeding DM (diabetes mellitus), type 2, uncontrolled w/neurologic complication (Chronic ) continue current Rx Essential (primary) hypertension (Chronic) stable Hypercholesteremia (Chronic) continue current Rx Obesity, Class II, BMI 35.0-39.9, with comorbidity (see actual BMI) (Chronic) secondary diagnosis Peripheral neuropathy (Chronic) secondary diagnosis Primary hypothyroidism (Chronic) secondary diagnosis I discussed the plan with Jade Thomson and she agrees with the stress test risk stratification followed by a cardiologists opinion as to the next steps.
[2017-03-14] MEDS: Insulin LISPRO* 1 UNITS UNIT SUBCUT SCH ×3 (07:56→17:15)
[2017-03-14] MEDS ORDERED: Regadenoson* 0.4 MG/5 ML SYRINGE ONE (09:23)
[2017-03-14] MEDS ORDERED: Aminophylline IV* 25 MG/ML 10 ML VIAL ONE (09:23)
[2017-03-14] MEDS: PTO: Liraglutide (NF) 18 MG/3 ML SUBCUT SCH (12:06)
[2017-03-14] MEDS: Lactobacillus Acidophilu (GG)* 1 CAP CAP PO SCH ×2 (12:08→20:36)
[2017-03-14] MEDS: Metoprolol Succinate XL TAB* 25 MG PO SCH (12:08)
[2017-03-14] MEDS: Amoxicillin/Clavulanate TAB* 875 MG PO SCH ×2 (12:08→20:40)
[2017-03-14] MEDS: Hydrochlorothiazide TAB* 25 MG PO SCH (12:08)
[2017-03-14] MEDS: Clopidogrel TAB* 75 MG PO SCH (12:08)
[2017-03-14] MEDS: Rivaroxaban TAB(*) 20 MG TAB PO SCH (12:08)
[2017-03-14] MEDS: Clobetasol 0.05% OINT* 30 GM TUBE TOPICAL SCH ×2 (12:10→20:40)
[2017-03-14] MEDS: Insulin GLARGINE(*) 1 UNITS UNIT SUBCUT SCH ×2 (12:10→20:40)
[2017-03-14] MEDS: Levothyroxine TAB* 100 MCG TAB PO SCH (14:59)
[2017-03-14] MEDS: Aspirin EC Low Dose* 81 MG TAB.EC PO SCH (20:36)
[2017-03-14] MEDS: Losartan TAB* 25 MG PO SCH (20:39)
[2017-03-14] MEDS: Atorvastatin* 80 MG TAB PO SCH (20:40)
[2017-03-15] MEDS: Levothyroxine TAB* 100 MCG TAB PO SCH (04:43)
[2017-03-15] MEDS: Insulin LISPRO* 1 UNITS UNIT SUBCUT SCH ×2 (07:25→11:54)
--- NOTE | 2017-03-15 07:56 | PN ---
Subjective - Subjective Reason for Note: Discharge Note History: Contingent discharge note Jade Thomson just completed the rest portion of her cardiac chemical NM stress test. She had 3 mins of paroxysmal atrial fibrillation whilst asleep last night and was not symptomatic. She has had bright red blood in her stool and on the paper after wiping. Otherwise, she is feeling fine. She has had no chest pain, dyspnea, light-headedness. Active Problems: Active Problems Anticoagulation adequate with anticoagulant therapy (Acute) Z79.01 Paroxysmal atrial fibrillation with rapid ventricular response (Acute) I48.0 Urinary tract infection (Acute 02/27/15) Coronary artery disease (Chronic) I25.10 DM (diabetes mellitus), type 2, uncontrolled w/neurologic complication (Chronic ) E11.49, E11.65 Essential (primary) hypertension (Chronic) I10 Hypercholesteremia (Chronic) E78.0 Obesity, Class II, BMI 35.0-39.9, with comorbidity (see actual BMI) (Chronic) E66.01 Peripheral neuropathy (Chronic) G62.9 Primary hypothyroidism (Chronic) E03.9 Current Medications: Current Medications Amoxicillin/Clavulanate Potassium (Augmentin Tab*) 875 mg PO BID [facility] Last Admin: 03/14/17 20:40 Dose: 875 mg Aspirin (Aspirin Ec Low Dose*) 81 mg PO BEDTIME [facility] Last Admin: 03/14/17 20:36 Dose: 81 mg Atorvastatin Calcium (Lipitor*) 80 mg PO BEDTIME [facility] Last Admin: 03/14/17 20:40 Dose: 80 mg Clobetasol Propionate (Clobetasol 0.05% Oint*) 1 applic TOPICAL BID [facility] Last Admin: 03/14/17 20:40 Dose: 1 applic Clopidogrel Bisulfate (Plavix Tab*) 75 mg PO DAILY [facility] Last Admin: 03/14/17 12:08 Dose: 75 mg Dextrose (D50w Syringe 50 Ml*) 12.5 gm IV PUSH .FOR FS < 60 - SS PRN PRN Reason: FS < 60 Hydrochlorothiazide (Hydrodiuril Tab*) 12.5 mg PO DAILY [facility] Last Admin: 03/14/17 12:08 Dose: 12.5 mg Insulin Glargine (Lantus(*)) 90 units SUBCUT QAM [facility] Last Admin: 03/14/17 12:10 Dose: 90 unit Insulin Glargine (Lantus(*)) 100 units SUBCUT BEDTIME [facility] Last Admin: 03/14/17 20:40 Dose: 100 units Insulin Human Lispro (Humalog*) 0 - 15 units SUBCUT AC [facility] PRN Reason: Protocol Last Admin: 03/15/17 07:25 Dose: Not Given Lactobacillus Rhamnosus (Culturelle*) 1 cap PO BID [facility] Last Admin: 03/14/17 20:36 Dose: 1 cap Levothyroxine Sodium (Synthroid Tab*) 100 mcg PO 0600 [facility] Last Admin: 03/15/17 04:43 Dose: 100 mcg Liraglutide (Victoza (Nf)) 0.6 mg SUBCUT DAILY [facility] Last Admin: 03/14/17 12:06 Dose: 0.6 mg Losartan Potassium (Cozaar Tab*) 100 mg PO BEDTIME [facility] Last Admin: 03/14/17 20:39 Dose: 100 mg Metoprolol Succinate (Toprol Xl Tab*) 25 mg PO DAILY [facility] Last Admin: 03/14/17 12:08 Dose: 25 mg Rivaroxaban (Xarelto (*)) 20 mg PO DAILY [facility] Last Admin: 03/14/17 12:08 Dose: 20 mg Home Medications: Home Medications Medication Instructions Recorded Confirmed Type Aspirin EC Low Dose* [Ecotrin EC 81 mg PO DAILY 02/27/15 03/11/17 History Low Dose 81 MG*] Atorvastatin* [Lipitor*] 80 mg PO QPM 02/27/15 03/11/17 History Clopidogrel TAB* [Plavix TAB*] 75 mg PO DAILY 02/27/15 03/11/17 History Hydrochlorothiazide TAB* 12.5 mg PO DAILY 02/27/15 03/11/17 History [Hydrodiuril TAB*] Insulin Aspart Protamine & Asp 0 - 50 inj SUBCUT TID MDD 50 units 02/27/1503/11 History [Novolog Mix 70/30 (70-30) 100 Unit/ml] Insulin Detemir [Levemir Flextouch] 100 unit SUBCUT QAM MDD 250 units 02/27/15 03/11/17 History Levothyroxine TAB* [Synthroid TAB*] 100 mcg PO 0800 02/27/15 03/11/17 History Losartan TAB* [Cozaar TAB*] 100 mg PO DAILY 02/27/15 03/11/17 History Metoprolol Succinate XL TAB* 25 mg PO DAILY 02/27/15 03/11/17 History [Toprol XL TAB*] Vitamin B Complex CAP* [B Complex 1 cap PO DAILY 02/27/15 03/11/17 History CAP*] metFORMIN* [Glucophage*] 1,000 mg PO 0800,1700 02/27/15 03/11/17 History Clobetasol 0.05% OINT* 1 applic TOPICAL BID 07/29/15 03/11/17 History Cranberry (Vaccinium Macrocarp 500 mg PO DAILY 03/11/17 03/11/17 History [Cranberry] Insulin Detemir [Levemir Flextouch] 110 unit SUBCUT QPM MDD 250 units 03/11/17 03/11/17 History Liraglutide (NF) [Victoza (NF)] 0.6 mg SUBCUT DAILY 03/11/17 03/11/17 History Allergies: Allergies Allergy/AdvReac Type Severity Reaction Status Date / Time Barbiturates Allergy Hives Verified 08/05/15 10:32 Exenatide [From [place]] Allergy Unknown Verified 03/11/17 19:03 Reaction Details Phenol [From Byetta] Allergy Unknown Verified 03/11/17 19:03 Reaction Details Objective - Vital Signs Vital Signs: Vital Signs 03/14/17 03/14/17 03/14/17 07:55 08:00 11:52 Temperature 97.3 F 97.6 F Pulse Rate 72 83 Respiratory 16 16 20 Rate Blood Pressure 123/54 145/67 (mmHg) O2 Sat by Pulse 92 92 Oximetry 03/14/17 03/14/17 03/14/17 15:30 19:07 20:00 Temperature 97.7 F 98.1 F Pulse Rate 80 80 Respiratory 18 16 16 Rate Blood Pressure 124/66 134/65 (mmHg) O2 Sat by Pulse 95 94 Oximetry 03/14/17 03/15/17 23:46 04:18 Temperature 98.2 F 98.1 F Pulse Rate 79 83 Respiratory 20 20 Rate Blood Pressure 145/39 133/59 (mmHg) O2 Sat by Pulse 95 95 Oximetry - Intake and Output Intake and Output: Intake & Output 03/12/17 03/13/17 03/14/17 03/15/17 11:59 11:59 11:59 11:59 Intake Total 200 1630 350 550 Output Total 0 Balance 200 1630 350 550 Weight 270 lb 3.2 oz Intake: IVPB 650 NS (0.9%) 650 Oral 200 980 350 550 Output: Urine 0 Other: Estimated Void Small Medium Medium Medium # Bowel Movements 0 0 0 0 # Voids 2 1 1 1 ADLs: Meal Record Start: 03/11/17 18: 30 Freq: DAILY@0900,1400,1800 Status: Active Document 03/12/17 09:06 [id number] (Rec: 03/12/17 09:06 [id number] TELE-C01) Document 03/12/17 18:00 [id number] (Rec: 03/12/17 21:56 [id number] MED-M19) Document 03/13/17 09:00 [id number] (Rec: 03/13/17 10:25 [id number] TELE-C11) Document 03/13/17 14:00 [id number] (Rec: 03/13/17 14:45 [id number] TELE-C11) Document 03/13/17 18:00 [id number] (Rec: 03/13/17 22:57 [id number] TELE-C34) Document 03/14/17 11:28 [id number] (Rec: 03/14/17 11:28 [id number] TELE-C10) Document 03/14/17 14:00 [id number] (Rec: 03/14/17 15:09 [id number] TELE-C10) Document 03/14/17 18:00 [id number] (Rec: 03/14/17 22:28 [id number] TELE-C10) Intake and Output Start: 03/11/17 18: 30 Freq: DAILY@0600,1400,2200 Status: Active Document 03/12/17 05:21 [id number] (Rec: 03/12/17 05:24 [id number] TELE-C33) Document 03/12/17 13:19 [id number] (Rec: 03/12/17 13:20 [id number] TELE-C01) Document 03/12/17 22:00 [id number] (Rec: 03/12/17 23:00 [id number] TELE-C34) Document 03/13/17 06:00 [id number] (Rec: 03/13/17 07:17 [id number] TELE-C34) Document 03/13/17 14:00 [id number] (Rec: 03/13/17 14:45 [id number] TELE-C11) Document 03/13/17 22:00 [id number] (Rec: 03/13/17 22:58 [id number] TELE-C34) Document 03/14/17 06:00 [id number] (Rec: 03/14/17 06:58 [id number] TELE-C34) Document 03/14/17 22:00 [id number] (Rec: 03/14/17 22:29 [id number] TELE-C10) Document 03/15/17 06:00 [id number] (Rec: 03/15/17 06:22 [id number] TELE-C33) - Physical Exam General: No Cyanosis, No Anemia, No Jaundice, No Clubbing Lungs and Chest: Yes: Chest Expansion Full, Chest Expansion Symetrica, Percussion Note Resonant, Vessicular Breath Sounds. No: Crackles, Wheezes Heart Rate and Rhythm: Regular Additional Cardiovascular: Yes: Normal Heart Sounds, Pedal Edema - trace. No: Heart Murmur Abdominal Exam: No: Distention, Abdominal Tenderness Results - Results Lab Results: Laboratory Results - last 24 hr 03/14/17 03/14/17 03/14/17 07:43 11:53 17:04 POC Glucose (mg/dL) 93 111 H 109 H 03/14/17 03/15/17 20:24 04:40 POC Glucose (mg/dL) 142 H 67 L Assessment - Problem List Assessment: Patient Problems Anticoagulation adequate with anticoagulant therapy (Acute) Paroxysmal atrial fibrillation with rapid ventricular response (Acute) Urinary tract infection (Acute 02/27/15) Coronary artery disease (Chronic) DM (diabetes mellitus), type 2, uncontrolled w/neurologic complication (Chronic) Essential (primary) hypertension (Chronic) Hypercholesteremia (Chronic) Obesity, Class II, BMI 35.0-39.9, with comorbidity (see actual BMI) (Chronic) Peripheral neuropathy (Chronic) Primary hypothyroidism (Chronic) Plan: Paroxysmal atrial fibrillation with rapid ventricular response (Acute) She had another episode of paroxysmal atrial fibrillation with a rapid rate whilst asleep last night. She has completed her NM chemical cardiac stress test and the images require reading by both radiology and cardiology. Urinary tract infection (Acute 02/27/15) She continues the augmentin - the E. coli is sensitive to this antibacterial. Anticoagulation adequate with anticoagulant therapy (Acute) She has had bright red blood in her stool - this sounds like hemorrhoidal bleeding. Clearly, she is taking 3 anti-thrombotic medications and this is too much. We need to stop the clopidogrel, but clearly this decision making depends upon the results of the stress test. Coronary artery disease (Chronic) For cardiology opinion today DM (diabetes mellitus), type 2, uncontrolled w/neurologic complication (Chronic ) She is going low overnight - 67 mg/dl overnight. I will cut back on her lantus Essential (primary) hypertension (Chronic) controlled Hypercholesteremia (Chronic) continue current Rx Obesity, Class II, BMI 35.0-39.9, with comorbidity (see actual BMI) (Chronic) Peripheral neuropathy (Chronic) secondary diagnosis Primary hypothyroidism (Chronic) continue current Rx I spoke to Jade Thomson about the therapeutic uncertainties until we have the results of the NM cardiac chemical stress test. Dr. Bermudez will need to decide upon whether she needs a coronary angiogram. If not, we will have to maintain her on anticoagulation and remove clopidogrel from her therapeutic regimen. The rectal bleeding may necessitate stopping the xarelto for a few days if this continues to be a problem. Dr. Bermudez has talked about starting her on multaq. If she requires a coronary artery endovascular procedure, we may not have to go the route of anticoagulation/multaq if it is clear the atrial fibrillation is driven by ischemia.
[2017-03-15] MEDS: Rivaroxaban TAB(*) 20 MG TAB PO SCH (08:01)
--- NOTE | 2017-03-15 08:09 | RAD ---
Edited for charges. INDICATION: Chest pain, multiple risk factors for coronary artery disease. COMPARISON: June 24, 2011 TECHNIQUE: On March 15, 2017, 25.800 mCi of Tc-99m Myoview were administered IV. SPECT images of the heart were obtained. On March 14, 2017, under the direction of Dr. Maldonado, the patient was given an IV injection of a pharmacologic stress agent. Subsequently, the patient was given an IV injection of 25.590 mCi Tc-99m Myoview. SPECT images of the heart were obtained and a gated wall motion study was performed. FINDINGS: Gated wall motion images were obtained at stress and demonstrate hypokinesia most marked at the septum and less marked at the anterior and inferior [place]. The calculated left ventricular ejection fraction is 66 % at stress and 62 % at rest. Estimated LEFT ventricular end diastolic volume is 81 mL at stress and 62 mL at rest. TID 1.09. Diaphragmatic attenuation noted. Based on review of the attenuation corrected and non corrected images there is a small fixed perfusion defect at the apex consistent with infarct. There is a contiguous adjacent region of decreased perfusion at stress at the apical segment of the anterior wall with reversal at rest favoring a small focus of stress-induced ischemia. IMPRESSION: 1. Hypokinesia at the septum, anterior wall, and inferior wall. Nonetheless LEFT ventricular ejection fraction remains within normal limits. 2. Small apical infarct. There is a contiguous adjacent region of decreased perfusion at stress at the apical segment of the anterior wall with reversal at rest favoring a small focus of stress-induced ischemia. ASSESSMENT: LOW RISK. Based on imaging criteria from ACC/AHA 2002 Guideline Update for the Management of Patients With Chronic Stable Angina Table 23. Noninvasive Risk Stratification. MTDD
[2017-03-15] MEDS: PTO: Liraglutide (NF) 18 MG/3 ML SUBCUT SCH (08:48)
[2017-03-15] MEDS: Amoxicillin/Clavulanate TAB* 875 MG PO SCH (08:49)
[2017-03-15] MEDS: Clobetasol 0.05% OINT* 30 GM TUBE TOPICAL SCH (08:49)
[2017-03-15] MEDS: Hydrochlorothiazide TAB* 25 MG PO SCH (08:50)
[2017-03-15] MEDS: Clopidogrel TAB* 75 MG PO SCH (08:50)
[2017-03-15] MEDS: Insulin GLARGINE(*) 1 UNITS UNIT SUBCUT SCH (08:51)
[2017-03-15] MEDS: Lactobacillus Acidophilu (GG)* 1 CAP CAP PO SCH (08:54)
[2017-03-15] MEDS: Metoprolol Succinate XL TAB* 25 MG PO SCH (08:54)
[2017-03-15 09:07] LABS: Hematocrit 43 % (35-47); Hemoglobin 13.7 g/dl (12.0-16.0); Mean Corpuscular HGB Conc 32 g/dl (31-36); Mean Corpuscular Hemoglobin 27 pg (27-31); Mean Corpuscular Volume 85 fL (80-97); Mean Platelet Volume 10 um3 (7.4-10.4); Red Blood Count 5.03 10^6/ul (4.0-5.4); Red Cell Distribution Width 15 % (10.5-15); White Blood Count 16.3 10^3/ul (3.5-10.8)
[2017-03-15 11:34] VITALS: BP 134/72
--- NOTE | 2017-03-15 12:27 | PN ---
Progress Note - Progress Note Note: Patient Name: MALI LARSEN Medical Record#: [id number] Ordering Physician: Yoav Darby MD Acct.#: [id number] : 1940 Age: 77 Sex: F Location: [address] [place] [address] MEDICAL/TELEMETRY Exam Date: 03/15/17 ADM Status: ADM Harley Order Information: NM MYOCARDIAL MULTI RESTING Accession Number: [id number] CPT: 22806 INDICATION: Chest pain, multiple risk factors for coronary artery disease. COMPARISON: June 24, 2011 TECHNIQUE: On March 15, 2017, 25.800 mCi of Tc-99m Myoview were administered IV. SPECT images of the heart were obtained. On March 14, 2017, under the direction of Dr. Maldonado, the patient was given an IV injection of a pharmacologic stress agent. Subsequently, the patient was given an IV injection of 25.590 mCi Tc-99m Myoview. SPECT images of the heart were obtained and a gated wall motion study was performed. FINDINGS: Gated wall motion images were obtained at stress and demonstrate hypokinesia most marked at the septum and less marked at the anterior and inferior [place]. The calculated left ventricular ejection fraction is 66 % at stress and 62 % at rest. Estimated LEFT ventricular end diastolic volume is 81 mL at stress and 62 mL at rest. TID 1.09. Diaphragmatic attenuation noted. Based on review of the attenuation corrected and non corrected images there is a small fixed perfusion defect at the apex consistent with infarct. There is a contiguous adjacent region of decreased perfusion at stress at the apical segment of the anterior wall with reversal at rest favoring a small focus of stress-induced ischemia. IMPRESSION: 1. Hypokinesia at the septum, anterior wall, and inferior wall. Nonetheless LEFT ventricular ejection fraction remains within normal limits. 2. Small apical infarct. There is a contiguous adjacent region of decreased perfusion at stress at the apical segment of the anterior wall with reversal at rest favoring a small focus of stress-induced ischemia. ASSESSMENT: LOW RISK. Based on imaging criteria from ACC/AHA 2002 Guideline Update for the Management of Patients With Chronic Stable Angina Table 23. Noninvasive Risk Stratification. <Electronically signed by Jaguar Corey MD in [place]> 03/15/17804 Dictated By: Jaguar Corey MD Dictated Date/Time: 03/15/17804 Transcribed Date/Time: 03/15/17 0758 Copy to: Laboratory Tests 03/15/17 08:53 Hgb 13.7 Hct [address] Bermudez. a/p Low risk stress test. No anemia from the GI bleeding. I told the patient the following * She should start multaq 400 mg twice daily. * Hold xarelto until she has had no further blood in stool * Stop clopidogrel/plavix * 5 day course of augmentin
[2017-03-15] MEDS ORDERED: Dronedarone TAB* 400 MG PO SCH (21:00)
--- NOTE | 2017-03-17 11:26 | DS ---
CC: Dr. Bermudez DISCHARGE SUMMARY: DATE OF ADMISSION: 03/11/17 DATE OF DISCHARGE: 03/15/17 DISCHARGE DIAGNOSES: 1. Paroxysmal atrial fibrillation. 2. Chest tightness. 3. Coronary artery disease. 4. Anticoagulation. 5. Gastrointestinal bleeding from hemorrhoids. 6. Urinary tract infection, Escherichia coli. SECONDARY DIAGNOSES: 1. Type 2 diabetes mellitus. 2. Hypertension. 3. Dyslipidemia. 4. Morbid obesity. 5. Peripheral neuropathy. 6. Primary hypothyroidism. HISTORY OF PRESENTING ILLNESS: Jade Thomson is a 77-year-old white female. Her presentation is docu mented in detail in [facility]'s admitting history and physical. In short, this patie nt has a history of coronary artery disease and a coronary artery stent x2. She developed chest tig htness during the night, which lasted at least 8 hours. She noted some palpitations and had been jean ving them for a couple of weeks previously. PHYSICAL EXAMINATION: Temperature 98.9, respirations 20, pulse 88, oxygen saturation 100% on room a ir, blood pressure 142/66. Her chest was clear. Cardiovascular, pulse was regular. No murmurs, rub s or gallops. INITIAL INVESTIGATIONS: Sodium 138, potassium 4.1, chloride 102, bicarbonate 27, BUN 19, creatinine 0.84, glucose 237. White count 16.6, hemoglobin 13.2, hematocrit 41, platelets 318. Lactic acid 3 .3. Troponins negative. EKG: Rate 85. Chest X-ray: No active cardiopulmonary disease. INITIAL IMPRESSION: 1. Chest pain, brought in for telemetry to rule out acute coronary syndrome and for monitoring elev ated lactic acid and leukocytosis, unclear. They plan to check a urinalysis. 2. Type 2 diabetes, to be followed as per usual. INVESTIGATIONS: Urinalysis: Positive nitrite, trace of esterase. Culture: E. coli, which is sensitive to multiple antibiotics including amoxicillin. On 03/12/17, nuclear medicine chemical stress test, EKG showed no signs of ischemia. Nuclear portio n, the report is part of the electronic medical record. Impression: 1. Hypokinesia of the septum, anterior wall, inferior wall, left ventricular ejection fraction with in normal limits. 2. Small apical infarct. Assessment: Low risk. CONSULTATION: Dr. Bermudez who helped follow her during the hospital course. His consultation is part of the electronic medical records, 03/12/17. His impression is paroxysmal atrial fibrillation with predominantly sinus rhythm in between, history of coronary artery disease. He recommended a st ress test to find out the underlying cause of the atrial fibrillation. He also suggested that she s hould start anticoagulation as she had a high risk based upon age, female sex, type 2 diabetes oliviai tus, vascular disease, and systemic hypertension. HOSPITAL COURSE: The patient was on telemetry and multiple episodes of rapid paroxysmal atrial fibr illation were seen. These were self-limiting and predominantly she was in sinus rhythm. At times, she was aware of this. At other times, she slept through it. She was found to have a urinary tract infection and I treated this with oral amoxicillin as the E. coli was sensitive to it. She had no further chest discomfort. She had a 2-day nuclear medicine stress test, which was benign. On the day of discharge, she was feeling very much better and ready to go home. She had had no chest pain, shortness of breath or palpitations. No cough. Physical examination on the day of discharge, she looked well. Temperature 97.6; pulse 81, regular; respiratory rate 20, oxygen saturation 95% on room air; blood pressure 134/72. She had no cyanosis , anemia, jaundice, clubbing or lymphadenopathy. Cardiovascular System: Pulse is regular, normal i n character and volume. Venous pressure not elevated. Heart sounds were normal. No added sounds o r murmurs. No pedal edema. Respiratory System: The chest was clear. Abdomen: Benign. Nervous sy stem: Alert and oriented. No focal neurological deficits. ASSESSMENT AND PLAN: 1. Paroxysmal atrial fibrillation. This did not appear to be caused by an episode of ischemia and itself may have caused some demand angina. We started her on anticoagulation with Xarelto 20 mg joyce ly. I note on the penultimate day in the hospital, she had a GI bleed and hence we held for 2 days the Xarelto. I note that she was already taking clopidogrel and aspirin, which contributed to this. We have started her on Multaq as an outpatient medication to prevent paroxysmal atrial fibrillatio n. She will follow with Dr. Bermudez with a notion to consider electrophysiological studies and ra diofrequency ablation of the source of this atrial fibrillation. 2. Anticoagulation as noted above. We are going to stop her clopidogrel and she will be on Xarelto and aspirin 81 mg a day. 3. Coronary artery disease. She has had a nuclear medicine stress test and she has a low risk. We will continue multi-risk factor intervention. 4. Urinary tract infection. I will treat her for 5 days with Augmentin, to which this E. coli is s ensitive. 5. Type 2 diabetes mellitus. This is well controlled. 6. Primary hypothyroidism. Her TSH was 1.75, which is adequate. 7. Obesity. She is continuing her efforts to try and lose weight. DISCHARGE MEDICATIONS: 1. Augmentin 875 mg twice daily for 5 days. 2. Dronedarone (Multaq) 400 mg twice daily. 3. Rivaroxaban (Xarelto) 20 mg daily. She will hold this for 2 days and then restart. 4. Insulin aspart 70/30, resume usual dose. 5. Levemir insulin 100 units in the morning, 110 units in the evening. 6. Levothyroxine 100 mcg a day. 7. Losartan 100 mg daily. 8. Vitamin D 1000 mcg a day. 9. Atorvastatin 80 mg per day at night. 10. Metoprolol 25 mg daily. 11. Hydrochlorothiazide 12.5 mg daily. 12. Aspirin 81 mg a day. 13. Metformin 1000 mg twice daily. 14. Liraglutide 0.6 mg subcutaneously daily. DISCHARGE FOLLOWUP: She has appointments with Dr. eBrmudez and with myself following discharge. [id number]/[facility] #: [id number]
== END 2017-03-15 16:37 | disposition home or self-care (01) | DRG 309 ==
LOC: ED 14:02 → MEDTELE 17:44 → OBSVTOIN 03-12 09:00
PROVIDERS: ADMIT Hospitalist; ATTEND Internal Medicine
DX: I48.0 Paroxysmal atrial fibrillation (principal); N39.0 Urinary tract infection, site not specified; E11.42 Type 2 diabetes mellitus with diabetic polyneuropathy; I11.9 Hypertensive heart disease without heart failure; E11.649 Type 2 diabetes mellitus with hypoglycemia without coma; K92.2 Gastrointestinal hemorrhage, unspecified; E66.01 Morbid (severe) obesity due to excess calories; I25.10 Atherosclerotic heart disease of native coronary artery without angina pectoris; Z95.5 Presence of coronary angioplasty implant and graft; B96.20 Unspecified Escherichia coli [E. coli] as the cause of diseases classified elsewhere; E78.5 Hyperlipidemia, unspecified; E03.8 Other specified hypothyroidism; Z68.39 Body mass index [BMI] 39.0-39.9, adult; Z85.820 Personal history of malignant melanoma of skin; Z79.82 Long term (current) use of aspirin; Z79.84 Long term (current) use of oral hypoglycemic drugs; Z79.4 Long term (current) use of insulin; Z79.899 Other long term (current) drug therapy; Z88.8 Allergy status to other drugs, medicaments and biological substances; Z83.3 Family history of diabetes mellitus; Z80.3 Family history of malignant neoplasm of breast; Z82.49 Family history of ischemic heart disease and other diseases of the circulatory system
CPT/HCPCS: 36415; 71020; 78452; 80048; 80053; 80061; 81003; 81015; 83605; 84439; 84443; 84479; 84481; 84484; 85025; 86140; 87077; 87086; 87186; 93005; 93017; A9270-GY; A9502; G0378; J0280; J1644; J2785

== ENCOUNTER 2017-06-01 14:38 | Emergency (ER) | payer MEDICARE, BC ==
[2017-06-01 14:45] VITALS: BP 138/70
--- NOTE | 2017-06-01 15:37 | UC ---
Knee Pain HPI - HPI Summary HPI Summary: This is a 77 yo female with multiple medical problems who presents with bilateral knee pain and L hip pain. She started with R knee pain 4 days ago, she was seated [place] the movie theatre and stretched her leg out when she heard a pop in her knee. She had sudden pain that developed and has had trouble walking on it ever since. She has had increasing L knee and hip pain since that time, she believes because of compensation. She fell yesterday because her R knee gave out when she tried to stand to get to the bathroom. She denies fever, rash or associated effusions. No recent tick bites. <Ashok Montoya - Last Filed: 06/01/17 15:32> <Beatriz Piper - Last Filed: 06/01/17 16:14> - History of Current Complaint Chief Complaint: UCLowerExtremity Stated Complaint: KNEE PAIN - Allergies/Home Medications Allergies/Adverse Reactions: Allergies Allergy/AdvReac Type Severity Reaction Status Date / Time Barbiturates Allergy Hives Verified 08/05/15 10:32 Exenatide [From [facility]] Allergy Unknown Verified 03/11/17 19:03 Reaction Details Phenol [From [facility]] Allergy Unknown Verified 03/11/17 19:03 Reaction Details PMH/Surg Hx/FS Hx/Imm Hx Previously Healthy: No Endocrine History: Diabetes, Hypothyroidism Cardiovascular History: Hypertension Neurological History: CVA Other History Of: Anticoagulant Therapy - PLAVIX, 81MG ASA - Surgical History Surgical History: Yes Surgery Procedure, Year, and Place: BILAT HERNIA REPAIR 1994. MELANOMA EXC RIGHT ARM X3 1989'S. R TOE SURGERY 2012. TONSILLECTOMY. RHINOPLASTY - Family History Known Family History: Positive: None - Social History Alcohol Use: Rare Substance Use Type: None Smoking Status (MU): Never Smoked Tobacco - Immunization History Most Recent Influenza Vaccination: fall 2013 Most Recent Tetanus Shot: within 10 years Most Recent Pneumonia Vaccination: within 5 years <Ashok Montoya - Last Filed: 06/01/17 15:32> Review of Systems Constitutional: Negative Skin: Negative Eyes: Negative ENT: Negative Respiratory: Negative Cardiovascular: Negative Gastrointestinal: Negative Genitourinary: Negative Motor: Decreased ROM Neurovascular: Negative All Other Systems Reviewed And Are Negative: Yes <Ashok Montoya - Last Filed: 06/01/17 15:32> Physical Exam Triage Information Reviewed: Yes Appearance: Well-Appearing Vital Signs: Initial Vital Signs Temp 98.6 F 06/01/17 14:41 Pulse 96 06/01/17 14:41 Resp 16 06/01/17 14:41 BP 138/70 06/01/17 14:41 Pulse Ox 100 06/01/17 14:41 Vital Signs Reviewed: Yes Respiratory: Positive: Chest non-tender, Lungs clear. Negative: Crackles, Rhonchi, Stridor, Wheezing Cardiovascular: Positive: RRR, No Murmur Musculoskeletal: Positive: ROM Intact, No Edema, Other: - TTP over medial joint line of L knee Skin Exam: Normal Skin: Negative: rashes <Ashok Montoya - Last Filed: 06/01/17 15:32> Vital Signs: Initial Vital Signs Temp 98.6 F 06/01/17 14:41 Pulse 96 06/01/17 14:41 Resp 16 06/01/17 14:41 BP 138/70 06/01/17 14:41 Pulse Ox 100 06/01/17 14:41 <Beatriz Piper - Last Filed: 06/01/17 16:14> Knee Pain Course/Dx - Course Course Of Treatment: This is a medically complicated 77 yo female who presented primarily with R knee pain that started suddenly several days ago after hearing a "pop". She complains of pain and weakness with ambulation. No associated effusion. Suspect medial mensicus care. Discussed utility of XR, whch patient declined and is not indicated specifically for non-traumatic knee pain - Differential Dx/Diagnosis Differential Diagnosis/HQI/PQRI: Contusion, Fracture (Closed), Sprain, Strain Provider Diagnoses: 1. R knee pain - suspected R mensicus tear <Ashok Motnoya - Last Filed: 06/01/17 15:32> Discharge <Ashok Montoya - Last Filed: 06/01/17 15:32> <Beatriz Piper - Last Filed: 06/01/17 16:14> - Discharge Plan Condition: Stable Disposition: HOME Patient Education Materials: Knee Pain (ED), Meniscus Tear (ED) Referrals: Yoav Darby MD [Primary Care Provider] - If Needed Additional Instructions: Activity: As tolerated Instructions: 1. Apply ice to your knee several times daily 2. Use Tylenol as needed for pain control 3. Cont all home medications 4. Cont to swim and complete water exercises Attestation Statement User Type: Provider - I was available for consult. This patient was seen by the ELA. The patient was not presented to, seen by, or examined by me. -Jackie <Beatriz Piper - Last Filed: 06/01/17 16:14>
== END 2017-06-01 15:48 | disposition home or self-care (01) ==
LOC: UCEAST 14:38
DX: M25.561 Pain in right knee (principal); X50.0XXA Overexertion from strenuous movement or load, initial encounter; Y93.89 Activity, other specified; Y92.26 Movie house or cinema as the place of occurrence of the external cause; Y99.9 Unspecified external cause status; W19.XXXA Unspecified fall, initial encounter; Y93.9 Activity, unspecified; Y92.9 Unspecified place or not applicable
CPT/HCPCS: 99212; G0463